=== PATIENT | male | born 1935 | race Caucasian/White ===

== ENCOUNTER → 2023-06-12 09:05 | Outpatient (REF) | payer MEDICARE, BC, SELFPAY | LOC: RCS 09:05 | PROVIDERS: ATTENDING PHYSICIAN Internal Medicine Cardiovascular Disease; FAMILY PHYSICIAN Family Medicine | DX: I77.810 Thoracic aortic ectasia (principal) | CPT/HCPCS: 93306 ==

== ENCOUNTER 2023-06-19 11:49 | Emergency (ER) | payer MEDICARE, BC, SELFPAY ==
[2023-06-19 11:51] VITALS: BP 120/79
[2023-06-19 12:35] LABS: ALT (SGPT) 12 U/L (0-50); AST (SGOT) 19 U/L (17-59); Albumin 3.8 g/dl (3.5-5.0); Alkaline Phosphatase 106 U/L (38-126); Blood Urea Nitrogen 28 mg/dl (9-20); Calcium 9.1 mg/dl (8.4-10.2); Carbon Dioxide 27 mmol/L (22-30); Chloride 102 mmol/L (98-107); Glucose 124 mg/dl (70-99); Potassium 4.3 mmol/L (3.5-5.1); Sodium 135 mmol/L (135-145); Total Bilirubin 1.4 mg/dl (0.2-1.3); Total Protein 6.8 g/dl (6.3-8.2); eGFR > 60.00
[2023-06-19 12:38] LABS: % Basophils 0.8 % (0-2); % Eosinophils 1.1 % (0-6); % Immature Granulocytes 0.4 % (0-0.5); % Lymphocytes 14.2 % (20.5-51.1); % Neutrophils 73.5 % (42.2-75.2); Absolute Basophils 0.1 10^3/uL (0-0.2); Absolute Eosinophils 0.1 10^3/uL (0-0.7); Absolute Lymphocytes 1.1 10^3/uL (1.2-3.4); Absolute Monocytes 0.8 10^3/uL (0.1-0.6); Absolute Neutrophils 5.8 10^3/uL (1.4-6.5); Hemoglobin 12.7 g/dL (13.0-18.0); Mean Corp Hgb Conc. 34.3 g/dL (33.0-37.0); Mean Corpuscular Hgb 29.9 pg (27.0-31.0); Mean Corpuscular Volume 87.1 fL (80.0-94.0); Nucleated Red Blood Cells % 0 % (-); Platelet Count 258 10^3/uL (130-400); Red Blood Cell Count 4.25 10^6/uL (4.70-6.10); Red Cell Dist. Width 14.2 % (11.5-14.5); White Blood Cell Count 7.9 10^3/uL (4.8-10.8)
[2023-06-19 12:45] LABS: Troponin I < 0.012 ng/ml
[2023-06-19 14:57] VITALS: BP 119/79
[2023-06-19 14:58] VITALS: BMI 33.6
[2023-06-19 15:00] VITALS: BP 123/77
--- NOTE | 2023-06-19 15:04 | EDRN ---
Dr. Naidu in room w/ pt and his son.
--- NOTE | 2023-06-19 15:12 | ED.GENMED ---
History of Present Illness
General
Chief Complaint: Breathing Problem
Source: patient and family
Time Seen by Provider: 06/19/23 14:59
Travel History
Have you had any contact with someone who has COVID-19?: No
Do you have any symptoms of coronavirus? Fever > 100 degrees, chills, cough, shortness of breath, sore throat, loss of taste or smell, muscle aches, or headache?: No
History of Present Illness
History of Present Illness:
This patient is an 88-year-old male presents emergency department accompanied by his son. His chief complaint is that of cough for the last 3 to 4 weeks. Is been getting progressively more persistent and is occasionally productive. He denies
hemoptysis. He saw his doctor on Thursday and was prescribed Levaquin. Since that time, like he is not improving but he does not necessarily feel worse. He says sometimes he will feel 'not too bad', and then a few minutes later will complain of
global weakness without focal findings. He denies fever, chills, sweats, dyspnea at rest. He does note mild dyspnea on exertion. He denies leg edema, PND, orthopnea. He denies urinary symptoms except slight hematuria which is not unusual for
him. He denies abdominal pain, back pain, headache, dizziness. He had chest discomfort complaints only on Thursday associated with a cough, no chest pain since that time. Patient states that he is not eating well. He does not have pain when
swallowing, but he says when he eats a lot he feels like the food starts to 'get caught', he chokes and then vomits. This most recently happened this morning while eating breakfast. He denies a foreign body sensation. Bowel movements are normal.
Past History
Past History
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
calculi, degenerative joint disease, arthritis, cataracts, right sided hearing impairment)
ED Past Surgical History: Orthopedic (Patient has a history of rotator cuff surgery on the right, left shoulder arthroscopy, and right knee arthroscopy) and Other (Patient has had surgery for right cataract and retinal detachment, stone the lip it
manipulation with stent placement left kidney stone extraction with stent in September of 2010, left testicular spermatocele ectomy,)
Social History
Tobacco: Non-smoker
Alcohol: None
Drug: None
Personal:
Living: with family
Employment: Retired
Family History
Family History: Hypertension
Phy Exam
Physical Exam
Physical Exam:
GENERAL: Alert , in no apparent distress, overall well-appearing, making jokes with me
EYE: pupils equal and reactive
NECK: Supple, no significant adenopathy.
ENT: o/p clr, mm slightly dry.
CARDIAC: Regular rate and rhythm with questionable occasional skipped beats.
LUNGS: Clear breath sounds bilaterally, no acute respiratory distress, no wheezes/rales/rhonchi, occasional nonproductive cough noted, speaks in full sentences easily
ABDOMEN: Soft, without focal tenderness, no r/g, no cvat
NEUROLOGICAL: Alert and oriented, no focal neuro deficits
SKIN: Warm and dry, skin intact.
MUSCULOSKELETAL: No edema, well perfused.
PSYCH: Normal and appropriate interaction.
Scores
Heart Failure Risk
Heart Failure Risk Score: Not Applicable
Course
Orders/Labs/Results
Orders:
Orders
06/19/23 11:58
Electrocardiogram (*1) Urgent
Reason for Study: Other
Other Reason for Exam: Respiratory Distress
EKG- Treatment ONCE
06/19/23 12:09
Complete Blood Count/With Diff Urgent
Comprehensive Metabolic Panel Urgent
NT-proBNP Urgent
Comment: ADD
Troponin I Urgent
Blood Culture Q30M
SKIP Source: Blood/Venous
Specimen Description:
Comment: FROM SEPARATE SITES
06/19/23 15:11
Add On- LAB Urgent
Tests Added?: bnp
CXR2 [CR Chest - 2 Views ] Stat
Comment:
Reason For Exam: sob, cough
06/19/23 15:14
ECG [Electrocardiogram (*1)] Stat
Reason for Study: Shortness of Breath
06/19/23 15:15
EKG- Treatment ONCE
06/19/23 15:34
COVID-19 Antigen Urgent
Source: Nasal Swab
Influenza A+B Rapid Molecular Stat
SKPI Source: Nasal Swab
Specimen Description:
Abnormal Lab Results
06/19/23
12:09
RBC 4.25 L 10^6/uL
(4.70-6.10)
Hgb 12.7 L g/dL
(13.0-18.0)
Hct 37.0 L %
(39.0-52.0)
MPV 11.0 H fL
(7.4-10.4)
Absolute Lymphs (auto) 1.1 L 10^3/uL
(1.2-3.4)
Absolute Monos (auto) 0.8 H 10^3/uL
(0.1-0.6)
Lymphocytes % 14.2 L %
(20.5-51.1)
Monocytes % 10.0 H %
(1.7-9.3)
BUN 28 H mg/dl
(9-20)
Glucose 124 H mg/dl
(70-99)
Total Bilirubin 1.4 H mg/dl
(0.2-1.3)
06/19/23 12:09
06/19/23 12:09
Vital Signs
Initial and Last Documented VS:
Initial Vital Signs
Temp Pulse Resp BP Pulse Ox
98.8 F 82 18 120/79 93
06/19/23 11:51 06/19/23 11:51 06/19/23 11:51 06/19/23 11:51 06/19/23 11:51
Last Documented Vital Signs
Temp Pulse Resp BP Pulse Ox
98.8 F 94 13 137/87 96
06/19/23 11:51 06/19/23 18:00 06/19/23 18:00 06/19/23 18:00 06/19/23 18:00
*Critical Care Note
Total Time (30-74mins, 75-104mins- exclusive of procedures): Not Applicable
Update Note
Update Note:
Patient presents to the Emergency Department with _cough
Number and Complexity of Problems Addressed at the Encounter
� Chronic conditions affecting care:
� Acute Exacerbation and/or Progression of Chronic Illness:
� Differential Diagnosis includes: But not limited to pneumonia, heart failure, pleural effusion, empyema, PTX, ACS, etc. etc.
Amount and/or Complexity of Data to be Reviewed and Analyzed
� I performed an independent evaluation of and my interpretation is:
EKG: Read by me, normal rate, initial portion of ECG appears to be irregular without clear P waves consistent with A-fib however last second of ECG consistent with normal sinus rhythm
CT:
Xrays: Read by me and radiology, NAD, no specific pneumonia noted.
Laboratory Studies: Read by me, mild anemia, however this would not be to the extent to explain patient's symptoms. COVID flu negative, BMP unremarkable, troponin unremarkable.
Other:
� Review of other/old records reveals: Discharge summary from January 2023 noted
� Clinical information was obtained by an independent historian: Son
� Prescriptions/Medications Considered but not given:
� Further testing considered but not performed:
Risk of Complications and/or Morbidity or Mortality of Patient Management
� Social determinants of health affecting care:
� Discussion with other providers (PCP, Hospitalists, Consultants, etc):
� Escalation of care including admission/observation vs risk of discharge considered: 5:46 PM repeat ECG does not demonstrate A-fib, consistent with normal sinus rhythm. Several reassessments here, patient remains comfortable
and states he feels 'great', pulse ox normal. We did a walking pulse ox which patient tolerated nicely without any observed hypoxia or symptoms. No chest pain. Extensive workup here, no specific acute etiology noted requiring intervention or
hospitalization at this time. And sent in for and reasons to return to the ER. He will continue his antibiotics and the full course.
ED Attending Note
-
Portions of this chart may have been created with voice recognition software.� Occasional wrong word or��sound alike� substitutions may have occurred due to the inherent limitations of voice recognition software.
Discharge Plan
Departure
Patient Disposition: Home (Routine Discharge)
Date of Disposition: 06/19/23
Time of Disposition: 17:48
Patient with high blood pressure during this ER visit?: No
Condition: Good
Discharge Problem:
Cough
Instructions: Cough in adults, Shortness of Breath (Dyspnea) (DC)
Prescriptions:
No Action
glimepiride 4 MG tablet
2 mg PO DAILY
metformin 1,000 MG tablet
1,000 mg PO BID
aspirin 81 mg Tablet,Delayed Release (Dr/Ec)
81 mg PO HS
amlodipine 10 mg tablet
10 mg PO DAILY
gabapentin 300 mg Capsule
300 mg PO BID
insulin glargine [Lantus Solostar U-100 Insulin] 100 unit/mL (3 mL) insulin pen
60 unit SC DAILY
acetaminophen [Tylenol Arthritis Pain] 650 mg Tablet Extended Release
1,300 mg PO TID
insulin aspart U-100 [Novolog FlexPen U-100 Insulin] 100 unit/mL (3 mL) Insulin Pen
16 - 20 unit SC AC
Rx Instructions:
Under 200= 16 units, Over 200= 20 units
hydrochlorothiazide 25 mg tablet
25 mg PO DAILY
levofloxacin 500 mg tablet
500 mg PO DAILY
potassium citrate 15 mEq tablet extended release
15 meq PO BID
Referrals:
Po Atkins MD [Family Provider] - Follow up in 2-3 days
Activity Restrictions/Additional Instructions:
IF YOU DEVELOP INCREASING OR PERSISTENT SHORTNESS OF BREATH, ANY CHEST PAIN, FEVER, VOMITING, ABDOMINAL PAIN, SWELLING, OR OTHER WORRISOME SIGNS, PLEASE RETURN TO THE ER IMMEDIATELY.
Interventions
Interventions:
*Risk Screen - Suicide Last Done: 06/19/23 11:51
*General Assessment Last Done: 06/19/23 11:51
*Neglect/Abuse Screening Last Done: 06/19/23 11:51
ED- Fall Risk Assessment Last Done: 06/19/23 14:58
*ED COVID-19 Vaccine History Last Done: 06/19/23 14:58
*Nursing Disposition Last Done: 06/19/23 18:15
ED- Cardiac Assessment Last Done: 06/19/23 14:58
ED- Pulmonary Assessment Last Done: 06/19/23 14:58
Discharge Date and Time
Discharge Date/Time: 06/19/23 18:15
[2023-06-19 16:00] VITALS: BP 127/71
[2023-06-19 16:07] LABS: NT-proBNP 208 pg/ml
[2023-06-19 16:16] LABS: COVID-19 Antigen Negative (Negative)
[2023-06-19 17:00] VITALS: BP 115/67
--- NOTE | 2023-06-19 17:39 | EDRN ---
Pt ambulated w/ walker in hallway from room # 39 to front of nurses/doctors area then turned around at beginning of ED CT hallway. Pt had no tachypnea, no increased work of breathing and POX remained 93-95% on RA. Dr. Naidu is aware.
[2023-06-19 18:00] VITALS: BP 137/87
== END 2023-06-19 18:15 | disposition home or self-care (01) ==
LOC: EMR 11:49
PROVIDERS: Emergency Medicine; EMERGENCY PHYSICIAN Emergency Medicine; FAMILY PHYSICIAN Family Medicine
DX: R05.9 Cough, unspecified (principal); R06.02 Shortness of breath; R06.09 Other forms of dyspnea; R31.9 Hematuria, unspecified; D64.9 Anemia, unspecified; Z11.52 Encounter for screening for COVID-19
CPT/HCPCS: 99285; 71046; 80053; 83880; 84484; 85025; 87040; 87502; 87811; 93005

== ENCOUNTER → 2023-06-22 08:12 | Day surgery (SDC) | payer MEDICARE, BC, SELFPAY ==
[2023-06-22 08:14] VITALS: BP 131/73
[2023-06-22 08:32] VITALS: BMI 32.3
--- NOTE | 2023-06-22 08:35 | ED.GENMED ---
History of Present Illness
General
Chief Complaint: Abdominal Symptoms
Source: patient and family
Exam Limitations: none
Time Seen by Provider: 06/22/23 08:23
Travel History
Have you had any contact with someone who has COVID-19?: No
Do you have any symptoms of coronavirus? Fever > 100 degrees, chills, cough, shortness of breath, sore throat, loss of taste or smell, muscle aches, or headache?: No
History of Present Illness
History of Present Illness:
See MDM
Past History
Past History
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
calculi, degenerative joint disease, arthritis, cataracts, right sided hearing impairment)
ED Past Surgical History: Orthopedic (Patient has a history of rotator cuff surgery on the right, left shoulder arthroscopy, and right knee arthroscopy) and Other (Patient has had surgery for right cataract and retinal detachment, stone the lip it
manipulation with stent placement left kidney stone extraction with stent in September of 2010, left testicular spermatocele ectomy,)
Social History
Tobacco: Non-smoker
Alcohol: None
Drug: None
Personal:
Living: with family
Employment: Retired
Family History
Family History: Hypertension
Phy Exam
Physical Exam
Physical Exam:
See MDM
Course
Orders/Labs/Results
Orders:
Orders
06/22/23 Breakfast
NPO
Allow oral meds: No
Allow clear liquids: No
06/22/23 08:41
Consult Gastroenterology [GASTROINTESTINAL CONSULT] Urgent
Consulting Provider: Teri Rdz
Was physician already notified: Yes
06/22/23 11:55
CBC/No Diff [Complete Blood Count/No Diff] Routine
CMP [Comprehensive Metabolic Panel] Routine
PT/INR [Prothrombin Time] Routine
06/22/23 12:46
Dextrose 50%-Water [Dextrose 50% Syringe] 12.5 grams IV NOW STA
06/22/23 13:00
Flush (0.9% Sodium Chloride) [Flush (Nss)] See Dose Instructions IV PER PROTOCOL
06/22/23 20:00
0.9% Sodium Chloride [Nss (Preservative Free)] 10 ml IV BID
Pantoprazole [Protonix IV] 40 mg IV BID
Abnormal Lab Results
06/22/23
11:55
RBC 4.36 L 10^6/uL
(4.70-6.10)
Hgb 12.9 L g/dL
(13.0-18.0)
MPV 10.9 H fL
(7.4-10.4)
BUN 30 H mg/dl
(9-20)
Glucose 57 L mg/dl
(70-99)
Total Bilirubin 1.5 H mg/dl
(0.2-1.3)
06/22/23 11:55
06/22/23 11:55
Vital Signs
Initial and Last Documented VS:
Initial Vital Signs
Temp Pulse Resp BP Pulse Ox
98.1 F 85 18 131/73 95
06/22/23 08:14 06/22/23 08:14 06/22/23 08:14 06/22/23 08:14 06/22/23 08:14
Last Documented Vital Signs
Temp Pulse Resp BP Pulse Ox
98.1 F 84 18 117/76 94
06/22/23 08:14 06/22/23 12:25 06/22/23 12:25 06/22/23 12:25 06/22/23 12:25
MDM/Problems Addressed
Differential Diagnosis Includes:
HPI and MDM Narrative:
88-year-old male presenting with complaint of trouble eating. Over the past several days, patient regurgitates his food soon after chewing it. Patient states it feels like he gets stuck. Family at bedside stating that he would chew his food even
when it is precut and ultimately ends up spitting it all up. He is able to drink water and soft foods such as applesauce.
Physical exam
General: Well appearing and non-toxic
HEENT: protecting airway. Poor dentition
Neck: supple
CV: No evidence of cyanosis
Resp: No accessory muscle use
Abd: Non-distended and nontender
Extremities: No deformities
Neuro: alert
Psych: Normal affect
Skin: Intact
Problems Addressed including Acute and Chronic Conditions affecting care:
1. Dysphagia
Acuity: acute
Prognosis: stable
Details: Given the difficulty with p.o. intake, will have GI evaluate at bedside
Updates
Patient evaluated by GI and they will take him to the GI suite for endoscopy
Differential Diagnosis (but not limited to): Dysphagia, esophageal stricture
Testing considered: Chest x-ray
Drug therapy (if applicable): OTC meds, please see d/c instruction regarding Rx drugs
Amount and/or Complexity of Data Reviewed
Clinical info obtained from: Patient
External data reviewed: N/A
Labs I independently reviewed (but not limited to): BUN mildly elevated
Radiology: N/A
Pulse Ox: not hypoxic
EKG independently reviewed: N/A
Registrar College [employer]: N/A
Critical Care: N/A
Risk of Complication:
Social Determinants of health: Good social support
Discussed with other providers: gastroenterology
Escalation of Care includes Admit/Obs: Given the dysphagia, patient will go to the GI suite for endoscopy
Occasional wrong word or 'sound a like' substitutions may have occurred due to the inherent limitations of voice recognition software. Read the chart carefully and recognize, using context, where substitutions have occurred.
*Critical Care Note
Total Time (30-74mins, 75-104mins- exclusive of procedures): Not Applicable
ED Attending Note
-
Portions of this chart may have been created with voice recognition software.� Occasional wrong word or��sound alike� substitutions may have occurred due to the inherent limitations of voice recognition software.
Discharge Plan
Departure
Patient Disposition: GI LAB
Date of Disposition: 06/22/23
Time of Disposition: 12:42
Presentation/result/management discussed w/ accepting MD/DO: Gastroenterology
Discharge Problem:
Dysphagia
Prescriptions:
No Action
glimepiride 4 MG tablet
2 mg PO DAILY
metformin 1,000 MG tablet
1,000 mg PO BID
aspirin 81 mg Tablet,Delayed Release (Dr/Ec)
81 mg PO HS
amlodipine 10 mg tablet
10 mg PO DAILY
gabapentin 300 mg Capsule
300 mg PO BID
insulin glargine [Lantus Solostar U-100 Insulin] 100 unit/mL (3 mL) insulin pen
60 unit SC DAILY
acetaminophen [Tylenol Arthritis Pain] 650 mg Tablet Extended Release
1,300 mg PO TID
insulin aspart U-100 [Novolog FlexPen U-100 Insulin] 100 unit/mL (3 mL) Insulin Pen
16 - 20 unit SC AC
Rx Instructions:
Under 200= 16 units, Over 200= 20 units
hydrochlorothiazide 25 mg tablet
25 mg PO DAILY
levofloxacin 500 mg tablet
500 mg PO DAILY
potassium citrate 15 mEq tablet extended release
15 meq PO BID
Referrals:
Po Atkins MD [Family Provider] -
Interventions
Interventions:
*Risk Screen - Suicide Last Done: 06/22/23 12:42
*General Assessment Last Done: 06/22/23 08:48
*Neglect/Abuse Screening Last Done: 06/22/23 12:42
ED- Fall Risk Assessment Last Done: 06/22/23 11:46
*ED COVID-19 Vaccine History Last Done: 06/22/23 08:18
*Nursing Disposition Last Done: 06/22/23 12:42
[facility]-Uue[facility]-Ognaelpoov Assessment Last Done: 06/22/23 12:48
--- NOTE | 2023-06-22 09:37 | CON.GI ---
Addendum entered and electronically signed by Teri Rdz MD 06/22/23 13:05:
I saw and examined the patient.
The SHEARING [employer] WORKER or PA's note was reviewed and I agree with the note.
Comment:
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 He has intermittent dysphagia to solids. Had a feeling of a food impaction but passed. No gerd, no prior egd
abd: soft, nontender
impression:
dysphagia
plan:
EGD with probable dilation, biopsy
PPI
Original Note:
Consultation
-
Date/Time Consultation Requested: 06/22/23
Date/Time Consultation Performed: 07/12/23 @ 09:45
Requesting Provider: Dr. Morgan
Performing Provider: COLLINS Rubio; Dr. Rdz
Reason for Consultation: possible food impaction, dysphagia
Medical History
Chief Complaint / HPI
Chief Complaint: difficulty swallowing
History of Present Illness:
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
diabetes type 2, sleep apnea, recurrent kidney stones, UTI/sepsis with ureteral stent placement 09/2022, arthritis, CAD, who presented to the emergency room with complaints of difficulty swallowing. We are being asked to evaluate for possible food
impaction. Upon review of records, he was seen in the emergency room on 06/18 with complaints of shortness of breath and cough. It appears he had been on recent antibiotics with Levaquin by his PCP for possible pneumonia. At that time he did have
some complaints of some dysphagia without odynophagia. His ER workup was essentially unrevealing. His viral swabs were negative for COVID and flu. Chest x-ray showed no signs of pneumonia. His EKG showed no signs of ischemia. He was noted to be
hypoxic. He was discharged home and advised to continue his antibiotics. Today he reports he has had difficulty swallowing for the past 3 weeks. His son is at the bedside as well to help with the history of present illness. The patient notes
that food has been getting stuck in his esophagus specifically dry meats. He denies any prior history of dysphagia prior to this onset. He notes that he did have an episode where the food got stuck for about 1 hour and his son notes he was
spitting up his saliva. He did eventually regurgitate the food and was able to swallow again. He denies any difficulty with pills or liquids. His son notes that when his father was younger he did require getting the Heimlich maneuver multiple
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 He denies any overt nausea or vomiting aside from the forced regurgitation he does admit to about 40 pounds of weight loss over the last few years but no acute onset of weight loss recently. He notes
he does have an appetite but is afraid to eat due to the food getting stuck. He denies any abdominal pain, chest pain, shortness of breath, fevers, or chills. He reports chronic diarrhea alternating with constipation for many years. He denies any
melena, medic easier, or hematemesis. He denies any recent steroid use. He denies any recent antibiotics prior to Levaquin which was prescribed by his PCP for treatment of pneumonia. He has 3 more days of his Levaquin course. He denies any
significant heartburn and does not take any medications for acid reflux. He does have a history of A-fib but is not on any blood thinners aside from 81 mg of aspirin. Prior EGD and colonoscopy approximately 10 years ago as noted below. No labs to
review.
Past Medical History
Past Medical History: Arrhythmias (atrial tachycardia), CAD, Cancer (Non-Hodgkin's lymphoma, colon mass with reported bone metastasis), GERD, HTN, Hypercholesterolemia, IDDM and Other (Sleep apnea, neuropathy, kidney stones, UTI, obesity)
Past Surgical History: Orthopedic (right rotator cuff surgery, left knee arthroscopy), Urological ( Left uteroscopy with laser lithotripsy 09/2022, ureteral stent placement) and Other (cataract surgery with intervention for retinal detachment)
Social History
Tobacco: Non-Smoker
Alcohol: None
Drug: None
Family History
Family History: Reviewed & Not Pertinent
Allergies / Home Medications
Allergy/AdvReac Type Severity Reaction Status Date / Time
No Known Allergies Allergy Verified 06/22/23 08:19
Medication Instructions Recorded
glimepiride 4 mg tablet 2 mg PO DAILY Diabetes 10/08/19
metformin 1,000 mg tablet 1,000 mg PO BID Diabetes 10/08/19
amlodipine 10 mg tablet 10 mg PO DAILY Blood pressure 04/25/22
aspirin 81 mg tablet,delayed 81 mg PO HS Blood clot 04/25/22
release prevention/tx
gabapentin 300 mg capsule 300 mg PO BID Neurological 04/25/22
Condition
insulin glargine 100 unit/mL (3 60 unit SC DAILY Diabetes 04/25/22
mL) subcutaneous pen (Lantus
Solostar U-100 Insulin)
acetaminophen 650 mg 1,300 mg PO TID Pain 01/30/23
tablet,extended release (Tylenol
Arthritis Pain)
insulin aspart U-100 100 unit/mL 16 - 20 unit SC AC Diabetes 01/30/23
(3 mL) subcutaneous pen (Novolog
FlexPen U-100 Insulin aspart)
hydrochlorothiazide 25 mg tablet 25 mg PO DAILY 06/19/23
levofloxacin 500 mg tablet 500 mg PO DAILY 06/19/23
potassium citrate 15 mEq (1,620 15 meq PO BID 06/19/23
mg) tablet,extended release
Review of Systems
-
History Source: Patient and Family
Constitutional: Reports Weight Loss (progressive over a few years)
EENT: Reports No Symptoms
Respiratory: Reports No Symptoms
Cardiac: Reports No Symptoms
Abdomen/GI: Reports Diarrhea, Constipated and Other (dysphagia, regurgitation)
: Reports Bleeding (intermittent bloody urine )
Musculoskeletal: Reports No Symptoms
Skin: Reports No Symptoms
Neurological: Reports No Symptoms
Vital Signs
Temp Pulse Resp BP Pulse Ox
98.1 F 85 18 131/73 95
06/22/23 08:14 06/22/23 08:14 06/22/23 08:14 06/22/23 08:14 06/22/23 08:14
Physical Exam
Exam
General: Well Developed, No Apparent Distress and Other (Pale, elderly appearing male in no significant distress)
HEENT: Normocephalic, Anicteric and Atraumatic
Respiratory: Clear
Cardiac: S1/S2 and Regular Rhythm (regularly irregular (with some skipped beats))
Breast: Deferred by me
GI: Soft, Non Tender, Non Distended, Normal Bowel Sounds and Other (obese abdomen)
Rectal: Deferred by Provider
Musculoskeletal: No Edema
Skin: Warm and Dry
Neuro: Awake, Alert and Oriented
Psych: Calm
Results
Diagnostic Image Results:
06/19/2023 CXR: IMPRESSION: 'Limited examination, especially of the left lower lung on the frontal view. No convincing evidence for consolidation/pneumonia. Cardiomegaly with no evidence for pulmonary edema or significant pleural effusion.'
Prior GI Procedures:
EGD: 02/15/2014 Dr. Camacho:�Z-line regular, 38 cm from the incisors. Biopsied. Hiatus hernia. Acute gastritis. Biopsied. Normal 3rd part of the duodenum. Biopsied. Path negative for dysplasia/metaplasia, celiac disease, H pylori.
Colonoscopy: 02/15/2014 Dr. Camacho: Diverticulosis in the sigmoid colon. Likely benign tumor in the sigmoid colon. Removal was not done. Biopsied. Injected. One 8 mm polyp in the distal transverse colon. Biopsied. Injected. One 4 mm polyp in the mid
transverse colon. Resected and retrieved.The examination was otherwise normal. Path showing malignant lymphoma of tumor. Adenomatous polyps.
Assessment / Plan
-
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
diabetes type 2, sleep apnea, recurrent kidney stones, hx UTI/sepsis 2022 with ureteral stent placement, arthritis, CAD, who presented to the emergency room with complaints of difficulty swallowing. We are being asked to evaluate for possible food
impaction. He notes 3 weeks of ongoing dysphagia with solid foods primarily with dry meats. Had episode suspicious for food impaction for 1 hour where he could not tolerate secretions per his son. Denies prior history of food impactions or
dysphagia. Currently tolerating secretions and resting in no acute distress.
Problem list:
-Dysphagia
-History of non-Hodgkin's lymphoma with colon mass and bone metastasis (no treatment per patient and son)
-Chronic normocytic anemia, hemoglobin appears stable
-Pneumonia on course of Levaquin as outpatient
Other prior medical history:
-Atrial tachycardia
-Recurrent kidney stones
-Insulin-dependent type 2 diabetes
-Osteoarthritis
-CAD
-Hypertension
-Hyperlipidemia
-hx dilated aortic root
Recommendations:
-Etiology of dysphagia possibly secondary to esophageal stricture versus Schatzki ring versus pill esophagitis versus esophageal candidiasis with recent antibiotics versus other. Cannot exclude mass/malignancy with history of non-Hodgkin's lymphoma
which was not treated.
---He currently is tolerating his secretions but it does sounds as though he did have a food impaction prior to admission.
-Discussed with the patient and his son at the bedside regarding proceeding with an EGD for further evaluation. Reviewed the risk and the benefits. They are agreeable to this today. Timing to be determined by Dr. Rdz but added on for today.
-Continue n.p.o.
-Will add twice daily PPI for now
-Further management pending above
-Of note I did have a discussion with the patient regarding if EGD findings were concerning for cancer. He does not wish to have any treatment in regards to this.
-Will follow
-
-
Thank you for consultation and allowing me to participate in the patient's care. Please call the [facility] paraprofessional GI physician during the after hours with any questions or concerns.
[2023-06-22 12:15] LABS: Hemoglobin 12.9 g/dL (13.0-18.0); Mean Corp Hgb Conc. 33.1 g/dL (33.0-37.0); Mean Corpuscular Hgb 29.6 pg (27.0-31.0); Mean Corpuscular Volume 89.4 fL (80.0-94.0); Mean Platelet Volume 10.9 fL (7.4-10.4); Platelet Count 289 10^3/uL (130-400); Red Blood Cell Count 4.36 10^6/uL (4.70-6.10); Red Cell Dist. Width 14.3 % (11.5-14.5); White Blood Cell Count 9.2 10^3/uL (4.8-10.8)
[2023-06-22 12:25] VITALS: BP 117/76
[2023-06-22 12:25] LABS: INR 1.16; PT 14.6 Sec (11.4-14.6)
[2023-06-22 12:29] LABS: Blood Urea Nitrogen 30 mg/dl (9-20); Estimated Creatinine Clearance 71 ml/min; Glucose 57 mg/dl (70-99)
[2023-06-22 12:30] LABS: ALT (SGPT) 13 U/L (0-50); AST (SGOT) 18 U/L (17-59); Albumin 3.9 g/dl (3.5-5.0); Alkaline Phosphatase 102 U/L (38-126); Calcium 9.1 mg/dl (8.4-10.2); Carbon Dioxide 28 mmol/L (22-30); Chloride 103 mmol/L (98-107); Potassium 3.8 mmol/L (3.5-5.1); Sodium 138 mmol/L (135-145); Total Bilirubin 1.5 mg/dl (0.2-1.3); Total Protein 6.8 g/dl (6.3-8.2); eGFR > 60.00
[2023-06-22 13:20] LABS: Glucose - Point of Care 116 mg/dl (70-99)
== END | disposition home or self-care (01) ==
LOC: SDS 08:12
PROVIDERS: Nurse Practitioner Family; ATTENDING PHYSICIAN Student in an Organized Health Care Education/Training Program; CONSULT PHYSICIAN Internal Medicine; FAMILY PHYSICIAN Family Medicine
DX: R13.10 Dysphagia, unspecified (principal); Q39.9 Congenital malformation of esophagus, unspecified; K22.2 Esophageal obstruction; K29.50 Unspecified chronic gastritis without bleeding
CPT/HCPCS: 43249; 88305; 80053; 82962; 85027; 85610; 88342; C1726

== ENCOUNTER → 2023-07-14 08:57 | Outpatient (REF) | payer MEDICARE, BC, SELFPAY | LOC: RAD 08:57 | PROVIDERS: ATTENDING PHYSICIAN Internal Medicine; FAMILY PHYSICIAN Family Medicine | DX: R13.19 Other dysphagia (principal) | CPT/HCPCS: 74221 ==

== ENCOUNTER → 2023-08-05 08:03 | Outpatient (REF) | payer MEDICARE, BC, SELFPAY | LOC: RAD 08:03 | PROVIDERS: ATTENDING PHYSICIAN Internal Medicine Cardiovascular Disease; FAMILY PHYSICIAN Family Medicine | DX: I71.21 Aneurysm of the ascending aorta, without rupture (principal) | CPT/HCPCS: 71275; Q9967 ==

== ENCOUNTER 2023-08-13 08:16 | Inpatient (IN) | payer MEDICARE, BC, SELFPAY ==
[2023-08-11 23:19] VITALS: BMI 33.2
[2023-08-11 23:21] VITALS: BP 114/66
[2023-08-12] VITALS (12 sets, daily range): BP systolic 92–137; BP diastolic 53–85; BMI 33.2; BMI 19.3
--- NOTE | 2023-08-12 00:07 | ED.GENMED ---
History of Present Illness
<PARVEZ Arce - Last Filed: 08/12/23 01:46>
General
Chief Complaint: Urinary Symptoms
Source: patient
Exam Limitations: none
Time Seen by Provider: 08/11/23 23:53
Nursing documentation reviewed up to this point in time: agreed with
Travel History
Have you had any contact with someone who has COVID-19?: No
Do you have any symptoms of coronavirus? Fever > 100 degrees, chills, cough, shortness of breath, sore throat, loss of taste or smell, muscle aches, or headache?: No
History of Present Illness
History of Present Illness:
This is a 88 year old male with an extensive PMHx presents to the ER for bladder incontinence x1 week. Son and grandson are by bedside providing additional history. Patient supports bladder incontinence about 5x daily for the past week. He admits
having urge shortly followed by incontinence. He has a history of multiple UTIs. He denies dysuria, odor, hematuria, back pain, or bowel incontinence. His son also reports patient has been more lethargic stating 'he slept all day.' Patient states
feeling more fatigued within the last week. He denies saddle paresthesia, abdominal pain, CP, SOB, or headache.
Past History
<PARVEZ Arce - Last Filed: 08/12/23 01:46>
Past History
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
calculi, degenerative joint disease, arthritis, cataracts, right sided hearing impairment)
ED Past Surgical History: Orthopedic (Patient has a history of rotator cuff surgery on the right, left shoulder arthroscopy, and right knee arthroscopy) and Other (Patient has had surgery for right cataract and retinal detachment, stone the lip it
manipulation with stent placement left kidney stone extraction with stent in September of 2010, left testicular spermatocele ectomy,)
Social History
Tobacco: Non-smoker
Alcohol: None
Drug: None
Personal:
Living: with family
Employment: Retired
Family History
Family History: Hypertension
Review of Systems
<Britta Cartwright [facility] - Last Filed: 08/12/23 01:46>
Review of Systems
Allergies reviewed?: Yes
All Other Systems: Not applicable
Constitutional: Reports fatigue
EENT: Reports no symptoms
Respiratory: Reports no symptoms
Cardiac: Reports no symptoms
ABD/GI: Reports no symptoms
: Reports incontinence and urgency
Musculoskeletal: Reports no symptoms
Skin: Reports no symptoms
Neurological: Reports no symptoms
Endocrine: Reports no symptoms
Hematologic/Lymphatic: Reports no symptoms
Psychiatric: Reports no symptoms
Phy Exam
<Britta Cartwright [facility] - Last Filed: 08/12/23 01:46>
General Physical Exam
General Presentation: well appearing and no apparent distress
General Skin: warm and dry
General Habitus: normal
General Mental: alert
General Hydration: appears well hydrated
ENT Exam
ENT Exam: EOMI, pharynx normal, neck supple and normocephalic
Eye Exam
Eye Exam: PERRL, cornea clear and conjunctiva normal
Cardiovascular Exam
Cardiovascular Exam: regular rate/rhythm, no edema, no murmur and normal peripheral pulses
Pulmonary Exam
Pulmonary Exam: lungs clear, no respiratory distress, no rales, no crackles, no rhonchi, no stridor, no wheezing and no cough
Gastrointestinal Exam
Gastrointestinal Exam: normal bowel sounds, non tender, soft, no organomegaly, no pulsatile mass and non distended
Neurological Exam
Neurological Exam: alert, oriented x3, no motor deficits and speech normal
Musculoskeletal Exam
Musculoskeletal Exam: full ROM and no edema
Skin Exam
Skin Exam: normal color, warm/dry, no rash and no petechia
Psychiatric Exam
Psychiatric Exam: normal mood/affect
Course
<PARVEZ Arce - Last Filed: 08/12/23 01:46>
Orders/Labs/Results
Orders:
Orders
08/12/23 00:04
ECG [Electrocardiogram (*1)] Urgent
Reason for Study: Palpitations
08/12/23 00:05
Urinalysis Urgent
08/12/23 01:10
Basic Metabolic Panel Urgent
Complete Blood Count/With Diff Urgent
Lactic Acid Q4H
Comment: CANCEL 2nd LACTIC ACID IF 1st LACTIC ACID IS LESS THAN 2
PTT Urgent
Procalcitonin Urgent
PCT Algorithmm Indication: Sepsis
Prothrombin Time Urgent
08/12/23 02:24
Lidocaine 2% [Lidocaine Uro-Jet 2%] 1 syringe .ROUTE .STK-MED ONE
Lidocaine 2% [Lidocaine Uro-Jet 2%] 1 syringe TOPICAL NOW STA
08/12/23 02:36
Naidu Placement- Treatment ONCE
Reason for insertion: Acute Kidney Injury
08/12/23 05:06
0.9% Sodium Chloride 500 ml [Nss] 500 ml IV BOLUS
08/12/23 05:33
CT Lumbar Spine W/o Iv Contras Urgent
Comment:
Reason For Exam: hx lumbar mets, urinary incontinence
Abnormal Lab Results
08/12/23
01:10
RBC 3.29 L 10^6/uL
(4.70-6.10)
Hgb 9.6 L g/dL
(13.0-18.0)
Hct 28.7 L %
(39.0-52.0)
RDW 17.2 H %
(11.5-14.5)
MPV 11.1 H fL
(7.4-10.4)
Abs Immat Gran (auto) 0.1 H 10^3/uL
(0-0.05)
Absolute Neuts (auto) 8.9 H 10^3/uL
(1.4-6.5)
Absolute Lymphs (auto) 0.8 L 10^3/uL
(1.2-3.4)
Immature Gran % 0.7 H %
(0-0.5)
Neutrophils % 84.8 H %
(42.2-75.2)
Lymphocytes % 8.0 L %
(20.5-51.1)
PT 16.6 H Sec
(11.4-14.6)
Sodium 131 L mmol/L
(135-145)
BUN 29 H mg/dl
(9-20)
Glucose 232 H mg/dl
(70-99)
Procalcitonin 0.28 H ng/ml
(0.0-0.25)
08/12/23 01:10
08/12/23 01:10
Vital Signs
Initial and Last Documented VS:
Initial Vital Signs
Temp Pulse Resp BP Pulse Ox
97.4 F 66 24 114/66 94
08/11/23 23:21 08/11/23 23:21 08/11/23 23:21 08/11/23 23:21 08/11/23 23:21
Last Documented Vital Signs
Temp Pulse Resp BP Pulse Ox
97.4 F 66 24 109/66 92
08/11/23 23:21 08/11/23 23:21 08/11/23 23:21 08/12/23 04:30 08/12/23 04:45
Clovislt;Jerson Cotton, DO - Last Filed: 08/12/23 05:36>
Orders/Labs/Results
Orders:
Orders
08/12/23 00:04
ECG [Electrocardiogram (*1)] Urgent
Reason for Study: Palpitations
08/12/23 00:05
Urinalysis Urgent
08/12/23 01:10
Basic Metabolic Panel Urgent
Complete Blood Count/With Diff Urgent
Lactic Acid Q4H
Comment: CANCEL 2nd LACTIC ACID IF 1st LACTIC ACID IS LESS THAN 2
PTT Urgent
Procalcitonin Urgent
PCT Algorithmm Indication: Sepsis
Prothrombin Time Urgent
08/12/23 02:24
Lidocaine 2% [Lidocaine Uro-Jet 2%] 1 syringe .ROUTE .ST-MED ONE
Lidocaine 2% [Lidocaine Uro-Jet 2%] 1 syringe TOPICAL NOW STA
08/12/23 02:36
Naidu Placement- Treatment ONCE
Reason for insertion: Acute Kidney Injury
08/12/23 05:06
0.9% Sodium Chloride 500 ml [Nss] 500 ml IV BOLUS
08/12/23 05:33
CT Lumbar Spine W/o Iv Contras Urgent
Comment:
Reason For Exam: hx lumbar mets, urinary incontinence
Abnormal Lab Results
08/12/23
01:10
RBC 3.29 L 10^6/uL
(4.70-6.10)
Hgb 9.6 L g/dL
(13.0-18.0)
Hct 28.7 L %
(39.0-52.0)
RDW 17.2 H %
(11.5-14.5)
MPV 11.1 H fL
(7.4-10.4)
Abs Immat Gran (auto) 0.1 H 10^3/uL
(0-0.05)
Absolute Neuts (auto) 8.9 H 10^3/uL
(1.4-6.5)
Absolute Lymphs (auto) 0.8 L 10^3/uL
(1.2-3.4)
Immature Gran % 0.7 H %
(0-0.5)
Neutrophils % 84.8 H %
(42.2-75.2)
Lymphocytes % 8.0 L %
(20.5-51.1)
PT 16.6 H Sec
(11.4-14.6)
Sodium 131 L mmol/L
(135-145)
BUN 29 H mg/dl
(9-20)
Glucose 232 H mg/dl
(70-99)
Procalcitonin 0.28 H ng/ml
(0.0-0.25)
08/12/23 01:10
08/12/23 01:10
Vital Signs
Initial and Last Documented VS:
Initial Vital Signs
Temp Pulse Resp BP Pulse Ox
97.4 F 66 24 114/66 94
08/11/23 23:21 08/11/23 23:21 08/11/23 23:21 08/11/23 23:21 08/11/23 23:21
Last Documented Vital Signs
Temp Pulse Resp BP Pulse Ox
97.4 F 66 24 109/66 92
08/11/23 23:21 08/11/23 23:21 08/11/23 23:21 08/12/23 04:30 08/12/23 04:45
<PARVEZ Arce - Last Filed: 08/12/23 01:46>
MDM/Problems Addressed
Differential Diagnosis Includes:
UTI, renal cancer/metastasis, nephrolithiasis
UTI considered with patient's history of recurrent UTIs. Will monitor UA for further work up. Renal cancer/metastasis considered due to patient's current cancer diagnoses. He states he has a follow up with oncology that was scheduled for this week.
Nephrolithiasis considered but less likely due to lack of pain.
Chronic conditions affecting care: Cancer
<PARVEZ Arce - Last Filed: 08/12/23 01:46>
*Critical Care Note
Total Time (30-74mins, 75-104mins- exclusive of procedures): Not Applicable
<Jerson Cotton DO - Last Filed: 08/12/23 05:36>
Update Note
Update Note:
08/12/2023 0210 AM: Patient urinated just prior to arrival. Still waiting on urine.
ED Attending Note
<PARVEZ Arce - Last Filed: 08/12/23 01:46>
-
Portions of this chart may have been created with voice recognition software.� Occasional wrong word or��sound alike� substitutions may have occurred due to the inherent limitations of voice recognition software.
<Jerson Cotton DO - Last Filed: 08/12/23 05:36>
ED Attending Note
Patient seen and examined by attending physician: Yes
I performed the substantive portion of visit, reviewed & personally made and approve the management plan that is documented in note by myself or SARBJIT.: Yes
ED Attending Note:
Pleasant 88-year-old male that presents with increased weakness and bladder incontinence for the last week. According to his son and grandson, patient has been having urinary incontinence. Patient states that he is unaware that he is urinating.
Patient denies any pain. Denies fever or chills. Denies nausea or vomiting. Son states that he has lost 25 pounds in the last few weeks. Patient has been eating slightly less then typical according to son. Patient does have 'some sort of
cancer'. Son thinks that his prostate or bladder
Vital signs are stable. Patient not hypoxic
Nursing note reviewed. I agree with nursing documentation up to this point in time.
Home Meds and allergies reviewed.
NUMBER AND COMPLEXITY OF PROBLEMS ADDRESSED AT THE ENCOUNTER
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
� Acute Exacerbation and/or Progression of Chronic Illness: Frequent UTIs
� Differential Diagnosis includes: UTI, metastasis of cancer
AMOUNT AND/OR COMPLEXITY OF DATA TO BE REVIEWED AND ANALYZED
I performed an independent evaluation of the following and my interpretation is:
EKG:
CT:
X-rays:
Ultrasound:
Laboratory Studies:
Other:
Review of other/old records:
Clinical information was obtained by an independent historian:
Prescriptions/Medications Considered but not given:
Further testing considered but not performed:
RISK OF COMPLICATIONS AND/OR MORBIDITY OR MORTALITY OF PATIENT MANAGEMENT
Social determinants of health affecting care: Good Social Support
Discussion with other providers:
Escalation of care including admission/observation vs risk of discharge considered:
CRITICAL CARE NOTE: Not applicable
Total Time (exclusive of procedures):
Update:
Discharge Plan
Departure
Patient Disposition: Admit
Date of Disposition: 08/12/23
Time of Disposition: 05:35
Admit to: Telemetry
Presentation/result/management discussed w/ accepting MD/DO: Hospitalist
Discharge Problem:
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
Prescriptions:
No Action
glimepiride 4 MG tablet
2 mg PO DAILY
metformin 1,000 MG tablet
1,000 mg PO BID
aspirin 81 mg Tablet,Delayed Release (Dr/Ec)
81 mg PO HS
amlodipine 10 mg tablet
10 mg PO DAILY
gabapentin 300 mg Capsule
300 mg PO BID
insulin glargine [Lantus Solostar U-100 Insulin] 100 unit/mL (3 mL) insulin pen
60 unit SC DAILY
acetaminophen [Tylenol Arthritis Pain] 650 mg Tablet Extended Release
1,300 mg PO TID
insulin aspart U-100 [Novolog FlexPen U-100 Insulin] 100 unit/mL (3 mL) Insulin Pen
16 - 20 unit SC AC
Rx Instructions:
Under 200= 16 units, Over 200= 20 units
hydrochlorothiazide 25 mg tablet
25 mg PO DAILY
levofloxacin 500 mg tablet
500 mg PO DAILY
potassium citrate 15 mEq tablet extended release
15 meq PO BID
Referrals:
Po Atkins MD [Family Provider] -
Interventions
Interventions:
*Risk Screen - Suicide Last Done: 08/11/23 23:21
*General Assessment Last Done: 08/12/23 01:25
*Neglect/Abuse Screening Last Done: 08/11/23 23:21
ED- Fall Risk Assessment Last Done: 08/12/23 01:25
*ED COVID-19 Vaccine History Last Done: 08/12/23 01:25
ED-Male Genitourinary Assessment Last Done: 08/12/23 01:25
Discharge Date and Time
Print Language: COLOMBIAN
[2023-08-12 01:33] LABS: % Basophils 0.3 % (0-2); % Eosinophils 0.3 % (0-6); % Immature Granulocytes 0.7 % (0-0.5); % Monocytes 5.9 % (1.7-9.3); % Neutrophils 84.8 % (42.2-75.2); Absolute Immature Granulocytes 0.1 10^3/uL (0-0.05); Absolute Lymphocytes 0.8 10^3/uL (1.2-3.4); Absolute Monocytes 0.6 10^3/uL (0.1-0.6); Absolute Neutrophils 8.9 10^3/uL (1.4-6.5); Hematocrit 28.7 % (39.0-52.0); Hemoglobin 9.6 g/dL (13.0-18.0); Mean Corp Hgb Conc. 33.4 g/dL (33.0-37.0); Mean Corpuscular Hgb 29.2 pg (27.0-31.0); Mean Corpuscular Volume 87.2 fL (80.0-94.0); Mean Platelet Volume 11.1 fL (7.4-10.4); Nucleated Red Blood Cells % 0 % (-); Platelet Count 301 10^3/uL (130-400); Red Blood Cell Count 3.29 10^6/uL (4.70-6.10); Red Cell Dist. Width 17.2 % (11.5-14.5); White Blood Cell Count 10.5 10^3/uL (4.8-10.8)
[2023-08-12 01:42] LABS: INR 1.36; PT 16.6 Sec (11.4-14.6)
[2023-08-12 01:43] LABS: APTT 30.5 Sec (23.4-35.0)
[2023-08-12 01:47] LABS: Blood Urea Nitrogen 29 mg/dl (9-20); Calcium 8.7 mg/dl (8.4-10.2); Carbon Dioxide 28 mmol/L (22-30); Chloride 100 mmol/L (98-107); Glucose 232 mg/dl (70-99); Lactic Acid 1.3 mmol/L (0.7-2.0); Potassium 4.3 mmol/L (3.5-5.1); Sodium 131 mmol/L (135-145); eGFR > 60.00
[2023-08-12 02:21] LABS: Procalcitonin 0.28 ng/ml (0.0-0.25)
[2023-08-12] MEDS: LIDOCAINE URO-JET 2% 1 SYRINGE TOPICAL (02:25)
--- NOTE | 2023-08-12 05:24 | HPS.HSE ---
Family Physician
-
Family Physician: Po Atkins
Chief Complaint
-
Weakness and Urine Incontinence x 5 days
History of Present Illness
88yo M with PMH HTN,�DM2,�SHIVANI on Cpap,�Non�Hodgkins Lymphoma (Dx by colonoscopy 01/2014), Mets to Spine,��Hx Obstructive Pyelonephritis,�GERD, Dysphagia�presents to ER for urine incontinence and generalized weakness. Pt is a poor historian, son who
lives with him is aiding in HPI. He reports urine incontinence ongoing for past 3-4 days without ever having such complaint in the past. He also reports chronic L>R UE weakness 2/2 arthritis and shoulder surgery but has had generalized lower
extremity weakness worsening for the last 1 month. +midline low back tenderness with radicular complaints. Denies saddle anesthesia or bowl incontinence. Additionally reports 25-30 lb wt loss. He reports never undergoing cancer treatment, and is
being observed by Dr. Saxena. Denies orthostatic complaints, dizziness/LH, CP, Palps, wheezing, cough, SOB, abd pain, n/v/d/c, dysuria, calf or leg pain.
He does also note a recent 08/04 CT Angiography study demonstrating extensive right axillary lymphadenopathy, renal masses, and a stable TAA 4cm.
ER course: Pt presents with BP 109/66, vital signs stable. BNU/Cr 29/0.8, BG 232, NA 131, Hgb 9.6 g/dL, WBC 10.8K. S/P 1L NS bolus in ER.
Onc: Hemanth
GI: Rubyyia Kajal
Urologist: Andrew (sp?)
Medical History
Past Medical History
Past Medical History: Reports Other (HTN,�DM2,�SHIVANI on Cpap,�Non�Hodgkins Lymphoma (Dx by colonoscopy 01/2014), Mets to Spine,��Hx Obstructive Pyelonephritis,�GERD, Dysphagia)
Past Surgical History: Reports Other (Rotator cuff surgery on the right, left shoulder arthroscopy, and right knee arthroscopy) and Other (Patient has had surgery for right cataract and retinal detachment, ureteral stent placement left kidney stone
extraction with stent in September of 2010)
Social History
Tobacco: Non-smoker
Alcohol: None
Drug: None
Personal:
Living: With Family
Employment: Retired
Family History
Family History: Hypertension and Other (Father had CVA)
Allergies / Home Medications
Allergies reflects when Allergies were last updated in [facility].
Home Medications with original date entered in [facility]
Allergy/Medication List:
Allergies
Allergy/AdvReac Type Severity Reaction Status Date / Time
No Known Allergies Allergy Verified 08/11/23 23:26
Home Medications
glimepiride 4 mg tablet 2 mg PO DAILY Diabetes 10/08/19
metformin 1,000 mg tablet 1,000 mg PO BID Diabetes 10/08/19
amlodipine 10 mg tablet 10 mg PO DAILY Blood pressure 04/25/22
aspirin 81 mg tablet,delayed release 81 mg PO HS Blood clot prevention/tx 04/25/22
gabapentin 300 mg capsule 300 mg PO BID Neurological Condition 04/25/22
insulin glargine 100 unit/mL (3 mL) subcutaneous pen (Lantus Solostar U-100 Insulin) 60 unit SC DAILY Diabetes 04/25/22
acetaminophen 650 mg tablet,extended release (Tylenol Arthritis Pain) 1,300 mg PO TID Pain 01/30/23
insulin aspart U-100 100 unit/mL (3 mL) subcutaneous pen (Novolog FlexPen U-100 Insulin aspart) 16 - 20 unit SC AC Diabetes 01/30/23
hydrochlorothiazide 25 mg tablet 25 mg PO DAILY 06/19/23
potassium citrate 15 mEq (1,620 mg) tablet,extended release 15 meq PO BID 06/19/23
escitalopram oxalate 5 mg tablet (Lexapro) 5 mg PO DAILY 08/12/23
Review of Systems
-
A 12 point ROS was completed and negative except as noted: Yes
Physical Exam
Vital Signs
Vital Signs
Temp Pulse Resp BP Pulse Ox
97.4 F 66 24 109/66 92
08/11/23 23:21 08/11/23 23:21 08/11/23 23:21 08/12/23 04:30 08/12/23 04:45
Physical Exam
General: Well Developed, Well Nourished and No Apparent Distress
HEENT: NormoCephalic, Moist mucous membranes and Atraumatic
Respiratory: Clear
Cardiac: S1/S2 and Regular Rhythm; No Murmur or Rub
GI: Soft, Non Tender, Non Distended and Normal Bowel Sounds; No Organomegaly
Rectal: Deferred by Provider
Genito-urinary: Naidu
Musculoskeletal: No Clubbing, No Cyanosis, No Edema and Other (No reproducible lumbar spine tenderness. Negative SLR b/l.)
Skin: No Rash
Neuro: Awake, Alert, Oriented, AO x 3, Cranial Nerves Intact, No Sensory Deficits and Other (LUE > RUE weakness (3/5 on left and 4/5 on right). MSK LE 5/5 throughout. )
Hematologic/Lymphatic: Lymphadenopathy
Psych: Calm
Laboratory Results
-
08/12/23 01:10
08/12/23 01:10
Laboratory Results
PT 16.6 Sec (11.4-14.6) H 08/12/23 01:10
INR 1.36 08/12/23 01:10
APTT 30.5 Sec (23.4-35.0) 08/12/23 01:10
Lactic Acid Cancelled 08/12/23 04:45
Data Reviewed
-
Diagnostic Radiology: Image Personally Visualized and interpreted
Medical Tests (Nuc Med, Echo, EKG etc): Image Personally Visualized and interpreted
Lab Data: Labs Reviewed by me
Old Records: Reviewed
Impression/Plan
-
Urinary Incontinence
Generalized Weakness
- Pt reports generalized lower extremity weakness, though 5/5 Strength on exam. Endorses chronic LUE>RUE weakness unchanged today
- He reports similar symptoms to his last UTI. UA still pending.
- Chemistry consistent with prerenal azotemia. Start IVF and trend BMP
- Naidu catheter was placed in ER for unclear reasons. Bladder scan after placement +25cc with no urine output as of yet.
- Obtain PT/OT consult
NHL
Metastatic Disease
Weight Loss
- Reports diagnosis in 01/2014 by colonoscopy. 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 Pt reports not being treated. Follows with oncology Dr. Saxena
- CTA 08/04 reviewed:
1.).There is extensive right axillary lymphadenopathy with greater than 10 clustered right axillary lymph nodes measuring up to 6.5 cm. This is highly suspicious for malignancy. Follow-up with PET scan and/or biopsy is recommended
2.).There are multiple right-sided renal masses including a 2 cm enhancing mass in the upper pole the right kidney which measures 57 Hounsfield units on noncontrast imaging and 86 Hounsfield units on postcontrast imaging. This mass may be benign or
malignant. Follow-up imaging with pre and postcontrast MRI including subtraction imaging may be useful for further evaluation
3). 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
- Consult h/o for further recommendations.
Hyponatremia
- Na 131. Suspect mild dehydration. S/P 1LNS bolus in ER. Continue NS @ 100cc/hr x 1L. Trend BMP
- Hold HCTZ. Consider holding gabapentin if worsening.
HTN
- BP 109/66 on admission. Suspect mild dehydration in setting of hyponatremia and pre-renal azotemia
- Hold HCTZ. Continue home amlodipine with hold parameters
DM2 / Neuropathy
- BG 232 on admission. Continue home insulin regimen. SSI/accuchecks. Continue home metformin/glimepride.
- Continue home gabapentin
SHIVANI
- Continue cpap qHS, does not know home settings
Anxiety/Depression - Recently started on lexapro 1 week ago. Cont 5 mg daily. Consider holding if hyponatremia worsens.
Dysphagia - S/P EGD 06/22/[address] Teri Rdz. Findings of tortuous esophagus, benign stricture, and tight LES. S/P balloon dilation with no further dysphagia. Continue diabetic diet.
Diet: Diabetic
DVT Ppx:Lovenox
Code Status: DNR/DNI
[2023-08-12] MEDS: NSS 500 IV (06:28)
--- NOTE | 2023-08-12 09:28 | CON.ONC ---
Addendum entered and electronically signed by Edmond Cam MD 08/12/23 10:04:
Anemia - HgB 9.6 Previous marrow involvement from NHL. Suspect that could be the cause (POD in marrow as well as systemic lymph node POD).
Addendum entered and electronically signed by Edmond Cam MD 08/12/23 09:51:
urology (not neurology) has also been consulted
Original Note:
Impression
Impression
Urinary incontinence, rule out spinal cord compression
Suspect disease progression/possible transformation of underlying grade 1 follicular lymphoma
Generalized weakness
Renal cysts/masses
Plan
Plan
Arrange for MRI of the thoracic/lumbar spine to rule out spinal cord compression as the etiology for his urinary incontinence. Somewhat atypical that he does not complain of more back pain.
Start empiric dexamethasone 6 mg IV TID pending MRI.
Patient will need lymph node biopsy. Will consult interventional radiology for right axillary lymph node biopsy. Check serum LDH.
Depending on MRI results, will consult radiation oncology if appropriate.
Renal cyst/renal masses could be potentially related to his lymphoma or could be benign cyst. MRI recommended but for now lets just get the MRI of the spine to make sure he does not have a spinal cord compression. Neurology has also been consulted.
Patient History
History of Present Illness
CC: Urinary incontinence
HPI: 88yo M with on observation alone with grade 1, stage IV follicular lymphoma diagnosed in 02/2014 with a relatively indolent course followed by Dr. Shivani Saxena. He presented with a colon mass and a positive bone marrow that revealed similar
small cleaved non-Hodgkin's lymphoma consistent with possibly follicular etiology. Patient was seen about a year ago and was relatively stable. He recently underwent follow-up CT angiogram to follow-up an ascending thoracic aortic aneurysm on
08/05/2023 and it showed extensive adenopathy consistent with recurrent lymphoma. A follow-up appointment with Dr. Saxena was actually scheduled for today to discuss further workup including a PET CT scan.
Patient was brought to the ER by his son for urinary incontinence x past 5 days and progressive generalized weakness. Patient denies any specific worsening or new back pain. He also reports chronic L>R UE weakness 2/2 arthritis and shoulder
surgery but has had generalized lower extremity weakness worsening for the last 1 month. Denies fecal incontinence. Additionally reports 25-30 lb wt loss.
Lumbar spine x-rays reveal multiple sites of what appears to be benign osseous disease with an area of canal stenosis at L4/L5.
Past-Medical/Surgical History
PMH: HTN, DM2, SHIVANI on Cpap, Non Hodgkins Lymphoma (Dx by colonoscopy 01/2014), Mets to Spine, Hx Obstructive Pyelonephritis, GERD, Dysphagia
PSH: Rotator cuff surgery on the right, left shoulder arthroscopy, and right knee arthroscopy) and Other (Patient has had surgery for right cataract and retinal detachment, ureteral stent placement left kidney stone extraction with stent in September
2010)
Social History
Tobacco: Non-smoker
Alcohol: None
Drug: None
Personal:
Living: With Son
Employment: Retired
Family History: Hypertension and Other (Father had CVA)
Patient Medication
�Medication �Instructions �Recorded �Confirmed �Last Taken �Type
glimepiride 4 mg tablet 2 mg PO DAILY Diabetes 10/08/19 08/12/23 08/11/23 History
metformin 1,000 mg tablet 1,000 mg PO BID Diabetes 10/08/19 08/12/23 08/11/23 History
amlodipine 10 mg tablet 10 mg PO DAILY Blood pressure 04/25/22 08/12/23 08/11/23 History
aspirin 81 mg tablet,delayed 81 mg PO HS Blood clot 04/25/22 08/12/23 08/11/23 History
release prevention/tx
gabapentin 300 mg capsule 300 mg PO BID Neurological 04/25/22 08/12/23 08/11/23 History
Condition
insulin glargine 100 unit/mL (3 60 unit SC DAILY Diabetes 04/25/22 08/12/23 08/11/23 History
mL) subcutaneous pen (Lantus
Solostar U-100 Insulin)
acetaminophen 650 mg 1,300 mg PO TID Pain 01/30/23 08/12/23 08/11/23 History
tablet,extended release (Tylenol
Arthritis Pain)
insulin aspart U-100 100 unit/mL 16 - 20 unit SC AC Diabetes 01/30/23 08/12/23 08/11/23 History
(3 mL) subcutaneous pen (Novolog
FlexPen U-100 Insulin aspart)
hydrochlorothiazide 25 mg tablet 25 mg PO DAILY 06/19/23 08/12/23 08/11/23 History
potassium citrate 15 mEq (1,620 15 meq PO BID 06/19/23 08/12/23 08/11/23 History
mg) tablet,extended release
escitalopram oxalate 5 mg tablet 5 mg PO DAILY 08/12/23 08/12/23 08/11/23 History
(Lexapro)
Active Medications
Generic Name Dose Route Start Last Admin
Trade Name Freq PRN Reason Stop Dose Admin
Acetaminophen 1,000 mg 08/12/23 09:00
Acetaminophen 500 Mg Tablet PO 09/09/23 08:59
TID JOSESITO
Albuterol/Ipratropium 3 ml 08/12/23 08:35
Ipratropium 0.5/Albuterol 3 Mg (3 Ml Ampul) INH
R Q4HPRN PRN
shortness of breath
Protocol
Amlodipine Besylate 10 mg 08/12/23 09:00
Amlodipine 10 Mg Tablet PO 09/09/23 08:59
DAILY JOSESITO
Bisacodyl 10 mg 08/12/23 08:35
Bisacodyl 10 Mg Rectal Suppository RECTAL 09/09/23 08:34
[id number] PRN
constipation
Ceftriaxone Sodium 1,000 mg 08/12/23 10:00
Ceftriaxone 1000 Mg / 10 Ml Vial IV
Q24H JOSESITO
Dextrose 12.5 grams 08/12/23 08:35
Dextrose 50% (0.5 Grams/Ml) 50 Ml Syringe IV 09/09/23 08:34
[id number] PRN
hypoglycemia
Protocol
Escitalopram Oxalate 5 mg 08/12/23 09:00
Escitalopram 5 Mg Tablet PO 09/09/23 08:59
DAILY JOSESITO
Gabapentin 300 mg 08/12/23 09:00
Gabapentin 300 Mg Capsule PO 09/09/23 08:59
BID JOSESITO
Glimepiride 2 mg 08/12/23 09:00
Glimepiride 2 Mg Tablet PO 09/09/23 08:59
DAILY JOSESITO
Glucagon 1 mg 08/12/23 08:35
Glucagon 1 Mg Vial IM 09/09/23 08:34
PRN PRN
hypoglycemia
Protocol
Guaifenesin 600 mg 08/12/23 08:35
Guaifenesin 600 Mg Extended Release Tablet PO 09/09/23 08:34
[id number] PRN
cough
Sodium Chloride 1,000 mls @ 100 mls/hr 08/12/23 08:35
Nss IV 08/12/23 18:34
.Q10H JOSESITO
Insulin Glargine 60 units/ 0.6 mls @ 0 mls/hr 08/12/23 10:00
Device SC 09/09/23 09:59
DAILY JOSESITO
As Directed
Insulin Aspart 16 - 20 units 08/12/23 08:35
Insulin Aspart (100 Units/Ml) 3 Ml Flexpen SC 09/09/23 08:34
AC JOSESITO
Insulin Aspart 0 units 08/12/23 08:35
Insulin Aspart Moderate Resistance 300 Units/3 Ml Pen.Injctr SC 09/09/23 08:34
AC JOSESITO
Protocol
Metformin HCl 1,000 mg 08/12/23 09:00
Metformin 1000 Mg Regular Release Tablet PO 09/09/23 08:59
BID@0800,1700 JOSESITO
Polyethylene Glycol 17 grams 08/12/23 08:35
Polyethylene Glycol Powder 17 Grams Packet PO 09/09/23 08:34
DAILYPRN PRN
constipation
Potassium Chloride 10 meq 08/12/23 09:00
Potassium Chloride 10 Meq Extended Release Tablet PO 09/09/23 08:59
BID JOSESITO
Senna/Docusate Sodium 1 tablet 08/12/23 08:35
Docusate W/Senna (Pinky-Colace) Tablet PO 09/09/23 08:34
BIDPRN PRN
constipation
Sterile Water 10 ml 08/12/23 10:00
Sterile Water For Injection 10 Ml Vial IV 09/09/23 09:59
Q24H JOSESITO
Review of Systems
-
History Source: Patient
Constitutional: Reports Fatigue; Denies Night Sweats
Respiratory: Reports No Symptoms
: Reports Incontinence
Hematologic/Lymphatic: Reports Swollen Glands
Physical Exam
-
General: Other (Elderly, frail, not cachectic generally weak)
HEENT: Negative Jaundice
Cardiology: S1 and S2
Pulmonary: Clear
GI: Soft
Extremities: No C/C/E
Hematologic / Lymphatic: Lymphadenopathy (6 cm right axillary malignant appearing lymphadenopathy)
Labs
Lab Results
WBC 10.5 10^3/uL (4.8-10.8) 08/12/23 01:10
RBC 3.29 10^6/uL (4.70-6.10) L 08/12/23 01:10
Hgb 9.6 g/dL (13.0-18.0) L 08/12/23 01:10
Hct 28.7 % (39.0-52.0) L 08/12/23 01:10
MCV 87.2 fL (80.0-94.0) 08/12/23 01:10
MCH 29.2 pg (27.0-31.0) 08/12/23 01:10
MCHC 33.4 g/dL (33.0-37.0) 08/12/23 01:10
RDW 17.2 % (11.5-14.5) H 08/12/23 01:10
Plt Count 301 10^3/uL (130-400) 08/12/23 01:10
MPV 11.1 fL (7.4-10.4) H 08/12/23 01:10
Abs Immat Gran (auto) 0.1 10^3/uL (0-0.05) H 08/12/23 01:10
Absolute Neuts (auto) 8.9 10^3/uL (1.4-6.5) H 08/12/23 01:10
Absolute Lymphs (auto) 0.8 10^3/uL (1.2-3.4) L 08/12/23 01:10
Absolute Monos (auto) 0.6 10^3/uL (0.1-0.6) 08/12/23 01:10
Absolute Eos (auto) 0.0 10^3/uL (0-0.7) 08/12/23 01:10
Absolute Basos (auto) 0.0 10^3/uL (0-0.2) 08/12/23 01:10
Immature Gran % 0.7 % (0-0.5) H 08/12/23 01:10
Neutrophils % 84.8 % (42.2-75.2) H 08/12/23 01:10
Lymphocytes % 8.0 % (20.5-51.1) L 08/12/23 01:10
Monocytes % 5.9 % (1.7-9.3) 08/12/23 01:10
Eosinophils % 0.3 % (0-6) 08/12/23 01:10
Basophils % 0.3 % (0-2) 08/12/23 01:10
Creatinine 0.8 mg/dL (0.7-1.3) 08/12/23 01:10
Vital Signs
Vital Signs
Temp Pulse Resp BP Pulse Ox
97.4 F 66 24 121/63 95
08/11/23 23:21 08/11/23 23:21 08/11/23 23:21 08/12/23 05:30 08/12/23 05:45
[2023-08-12 09:59] LABS: Urine Albumin 1+ (Neg - Trace); Urine Bilirubin Negative (Negative); Urine Character Slightly Cloudy (Clear); Urine Color Yellow; Urine Glucose 3+ (Negative); Urine Ketone Trace (Negative); Urine Leukocyte Trace (Negative); Urine Nitrite Negative (Negative); Urine Occult Blood 4+ (Negative); Urine Specific Gravity 1.015 (<1.030); Urine Urobilinogen 3+ (Neg - 1+)
--- NOTE | 2023-08-12 10:04 | W.PN.HOSP.TC ---
Today's Communication/Plan
-
IV fluids. IV antibiotics. Plan for MRI spine
Assessment / Plan
Assessment / Plan
Physical exam:
General: Acutely ill
HEENT: Normocephalic, Atraumatic and Moist Mucous Membranes
Respiratory: Clear to Auscultation; Negative Wheezes, Rales or Rhonchi
Cardiac: Regular Rhythm and S1/S2
GI: Soft, Nontender and Nondistended
Musculoskeletal: No Clubbing, No Cyanosis and No Edema
Neuro: Awake, Alert and Oriented, generalized weakness
Psych: Calm
A/P:
Urinary Incontinence rule out UTI versus spinal cord related
Generalized Weakness
- Pt reports generalized lower extremity weakness, though 5/5 Strength on exam. Endorses chronic LUE>RUE weakness unchanged today
- He reports similar symptoms to his last UTI.
- Chemistry consistent with prerenal azotemia. Start IVF and trend BMP
- Naidu catheter was placed in ER for unclear reasons. Bladder scan after placement +25cc with no urine output as of yet upon admission.
- Obtain PT/OT consult
-I agree not sure why Naidu catheter was placed. When I reevaluated this morning on 08/11 patient is voiding and bladder scan only 100 cc. Naidu catheter was became so the nurse took it out and was attempted to put another catheter in and in a
three-way catheter and then a coud� catheter. In any event, patient does not need a Naidu catheter at all at the moment. I did reach out to urology (he has a follow-up with urology as outpatient) and will consult them if any pertinent issues arise
but at this point hold off and reevaluate and bladder scan.
-Obtain blood cultures and urine cultures today
-Start empiric antibiotics, Rocephin 1 g IV daily
-Updated son at bedside today 08/11
NHL
Metastatic Disease
Weight Loss
- Reports diagnosis in 01/2014 by colonoscopy. 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 Pt reports not being treated. Follows with oncology Dr. Saxena
- CTA 08/04 reviewed:
1.).There is extensive right axillary lymphadenopathy with greater than 10 clustered right axillary lymph nodes measuring up to 6.5 cm. This is highly suspicious for malignancy. Follow-up with PET scan and/or biopsy is recommended
2.).There are multiple right-sided renal masses including a 2 cm enhancing mass in the upper pole the right kidney which measures 57 Hounsfield units on noncontrast imaging and 86 Hounsfield units on postcontrast imaging. This mass may be benign or
malignant. Follow-up imaging with pre and postcontrast MRI including subtraction imaging may be useful for further evaluation
3). 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
-Consulted hematology oncology today, 08/11
-Plan for MRI of the lumbar spine
Hyponatremia
- Na 131. Suspect mild dehydration. S/P 1LNS bolus in ER. Continue NS @ 100cc/hr x 1L. Trend BMP
- Hold HCTZ. Consider holding gabapentin if worsening.
HTN
- BP 109/66 on admission. Suspect mild dehydration in setting of hyponatremia and pre-renal azotemia
- Hold HCTZ. Continue home amlodipine with hold parameters
DM2 / Neuropathy
- BG 232 on admission. Continue home insulin regimen. SSI/accuchecks. Continue home metformin/glimepride.
- Continue home gabapentin
SHIVANI
- Continue cpap qHS, does not know home settings
Anxiety/Depression - Recently started on lexapro 1 week ago. Cont 5 mg daily. Consider holding if hyponatremia worsens.
Dysphagia - S/P EGD 06/22/[address] Teri Rdz. Findings of tortuous esophagus, benign stricture, and tight LES. S/P balloon dilation with no further dysphagia. Continue diabetic diet.
Diet: Diabetic
DVT Ppx:Lovenox
Code Status: DNR/DNI
Anticipated Discharge: > 48 hours
Subjective/Interval History
-
Date of Service: August 12, 2023
Patient with generalized weakness. Patient with urinary urgency, frequency, and incontinence. Afebrile
Objective Data
-
Labs:
Laboratory Results
08/12/23
01:10
WBC 10.5
Hgb 9.6 L
Hct 28.7 L
Plt Count 301
PT 16.6 H
INR 1.36
APTT 30.5
Sodium 131 L
Potassium 4.3
Chloride 100
Carbon Dioxide 28
BUN 29 H
Creatinine 0.8
Glucose 232 H
Calcium 8.7
Vital Signs:
Vital Signs
Temp Pulse Resp BP Pulse Ox
97.4 F 66 24 121/63 95
08/11/23 23:21 08/11/23 23:21 08/11/23 23:21 08/12/23 05:30 08/12/23 05:45
[2023-08-12 10:07] LABS: Urine Red Blood Cell 50-60 /HPF (0-2); Urine Squamous Cell 0-2 /LPF (Few)
[2023-08-12 10:08] LABS: Urine Bacteria Few (Negative)
[2023-08-12] MEDS: TYLENOL 1000 MG PO ×3 (11:15→21:42)
[2023-08-12] MEDS: NORVASC 10 MG PO (11:15)
[2023-08-12] MEDS: GLUCOPHAGE 1000 MG PO ×2 (11:16→17:51)
[2023-08-12] MEDS: KCL 10 MEQ PO ×2 (11:16→20:43)
[2023-08-12] MEDS: NEURONTIN 300 MG PO ×2 (11:17→20:43)
[2023-08-12] MEDS: DECADRON 6 MG IV ×2 (11:17→17:51)
[2023-08-12] MEDS: NOVOLOG FLEXPEN-MODERATE RESISTANCE SC (11:21)
[2023-08-12] MEDS: NOVOLOG FLEXPEN 20 UNITS SC ×3 (11:21→17:43)
[2023-08-12] MEDS: NSS 1000 IV (11:22)
[2023-08-12 11:23] LABS: Glucose - Point of Care 351 mg/dl (70-99)
[2023-08-12] MEDS: LANTUS 0.599999999999999978 UNITS SC (11:23)
[2023-08-12] MEDS: STERILE WATER FOR INJECTION 10 ML IV (11:35)
[2023-08-12] MEDS: ROCEPHIN 1000 MG IV (11:35)
[2023-08-12] MEDS: LEXAPRO 5 MG PO (11:35)
[2023-08-12] MEDS: AMARYL 2 MG PO (11:36)
--- NOTE | 2023-08-12 12:08 | CM ---
CM reviewed medical records. [facility] letter given to patient. Patient lives with son in a one story home. Patient has a history of VN with [facility]. Referral sent via [facility] for [facility]. CM is further pending PT recommendations. Patient denies
history of SNF. Patient uses a walker for ambulation services. Patient is active with his PCP DR. Atkins. Patient uses [facility] for pharmacy services in [place].
CM will continue to follow for needs pending PT revaluation.
PLAN: Home with VN
[2023-08-12 12:13] LABS: LDH 162 U/L (120-246)
[2023-08-12 12:32] LABS: Vitamin B12 517 pg/ml (239-931)
[2023-08-12] MEDS: NOVOLOG FLEXPEN-MODERATE RESISTANCE 7 UNITS SC (13:58)
[2023-08-12 14:02] LABS: Glucose - Point of Care 326 mg/dl (70-99)
--- NOTE | 2023-08-12 14:17 | PTOTSP ---
Dysphagia Evaluation
Oral and pharyngeal stages of swallowing suspected to be grossly WFL. Patient with history of esophageal dysphagia. Please follow reflux precautions.
Recommend:
1. Regular, Thin Liquids
2. Medications - as best tolerated (pt crushes large pills and mixes in applesauce)
3. Strategies: upright to 90 degrees, alternate solids and liquids, remain upright 30 minutes after PO intake
4. No further dysphagia therapy warranted at this time.
[2023-08-12 17:27] LABS: Glucose - Point of Care 378 mg/dl (70-99)
[2023-08-12] MEDS: NOVOLOG FLEXPEN-MODERATE RESISTANCE 9 UNITS SC (17:44)
[2023-08-12] MEDS: LOVENOX 40 MG SC (17:51)
[2023-08-12 21:05] LABS: Glucose - Point of Care 402 mg/dl (70-99)
[2023-08-12] MEDS: LOW STRENGTH ASPIRIN 81 MG PO (21:42)
[2023-08-12 22:12] LABS: Glucose 300 mg/dl (70-99)
[2023-08-12] MEDS: NOVOLOG FLEXPEN 7 UNITS SC (22:37)
[2023-08-13] VITALS (7 sets, daily range): BP systolic 101–127; BP diastolic 59–73; PULSE 72–91; O2SAT 95; BMI 19.4
[2023-08-13 00:30] LABS: Glucose - Point of Care 278 mg/dl (70-99)
[2023-08-13] MEDS: DECADRON 6 MG IV (01:55)
[2023-08-13 03:09] LABS: Glucose - Point of Care 297 mg/dl (70-99)
[2023-08-13 05:43] LABS: % Basophils 0.1 % (0-2); % Immature Granulocytes 0.6 % (0-0.5); % Lymphocytes 2.5 % (20.5-51.1); % Monocytes 3.5 % (1.7-9.3); % Neutrophils 93.3 % (42.2-75.2); Absolute Immature Granulocytes 0.1 10^3/uL (0-0.05); Absolute Lymphocytes 0.4 10^3/uL (1.2-3.4); Absolute Monocytes 0.6 10^3/uL (0.1-0.6); Absolute Neutrophils 14.8 10^3/uL (1.4-6.5); Hematocrit 29.2 % (39.0-52.0); Hemoglobin 9.4 g/dL (13.0-18.0); Mean Corp Hgb Conc. 32.2 g/dL (33.0-37.0); Mean Corpuscular Hgb 28.8 pg (27.0-31.0); Mean Corpuscular Volume 89.6 fL (80.0-94.0); Mean Platelet Volume 11.3 fL (7.4-10.4); Nucleated Red Blood Cells % 0 % (-); Platelet Count 292 10^3/uL (130-400); Red Blood Cell Count 3.26 10^6/uL (4.70-6.10); Red Cell Dist. Width 16.9 % (11.5-14.5); White Blood Cell Count 15.9 10^3/uL (4.8-10.8)
[2023-08-13 06:09] LABS: Blood Urea Nitrogen 33 mg/dl (9-20); Carbon Dioxide 25 mmol/L (22-30); Chloride 99 mmol/L (98-107); Estimated Creatinine Clearance 73 ml/min; Glucose 311 mg/dl (70-99); Potassium 4.7 mmol/L (3.5-5.1); Sodium 134 mmol/L (135-145); eGFR > 60.00
[2023-08-13 06:37] LABS: TSH Reflex To Free T4 0.44 uIU/ml (0.47-4.68)
[2023-08-13 07:07] LABS: Free T4 1.18 ng/dl (0.78-2.19)
[2023-08-13 07:13] LABS: Glucose - Point of Care 384 mg/dl (70-99)
--- NOTE | 2023-08-13 08:13 | W.PN.HOSP.TC ---
Today's Communication/Plan
-
Continue IV antibiotics. Biopsy pending.
Assessment / Plan
Assessment / Plan
Physical exam:
General: Acutely ill
HEENT: Normocephalic, Atraumatic and Moist Mucous Membranes
Respiratory: Clear to Auscultation; Negative Wheezes, Rales or Rhonchi
Cardiac: Regular Rhythm and S1/S2
GI: Soft, Nontender and Nondistended
Musculoskeletal: No Clubbing, No Cyanosis and No Edema
Neuro: Awake, Alert and Oriented, generalized weakness
Psych: Calm
Thoracic MRI:
No intrinsic cord signal alteration or abnormal enhancement.
Mild degenerative changes. Mild annular bulging from T7-8 through T11-12. Associated mild central canal narrowing. However, no cord compression.
Abnormal STIR signal intensity and enhancement of the left T7 transverse process, raising possibility of osseous metastatic disease. No other evidence to suggest vertebral metastatic disease. Multiple small vertebral lesions with signal
characteristics most consistent with hemangiomas.
Lumbar MRI:
1. Naidu catheter inferiorly positioned within the prostatic urethra and not extending into the urinary bladder. Severe enlargement of the prostate gland. Moderate to severe diffuse thickening and trabeculation of the wall of the urinary bladder
suggesting chronic urinary bladder outlet obstruction.
2. Chronic fracture of the anterior superior endplate of L2 with moderate loss of vertebral body height which appears unchanged. No CT evidence for acute fracture in the lumbar spine.
3. Mild to moderate right convex curvature of the midlumbar spine. SEVERE DISCOGENIC DEGENERATIVE DISEASE along the left side of L3/L4 and moderate discogenic degenerative disease at L1/L2 and L2/L3.
4. Moderate-sized central disc herniation at L4/L5 causing MODERATE CENTRAL CANAL STENOSIS.
5. Mild central canal stenosis at L2/L3 and L3/L4.
6. Severe right neural foraminal narrowing at L5/S1.
7. Bilateral high attenuation renal masses (probably hemorrhagic renal cysts).
8. Mild stercoral colitis in the rectum.
9. 4.4 cm calcified right-sided pelvic mass (probably treated lymphoma).
A/P:
Urinary Incontinence rule out UTI versus spinal cord related
Generalized Weakness
- Pt reports generalized lower extremity weakness, though 5/5 Strength on exam. Endorses chronic LUE>RUE weakness unchanged today
- He reports similar symptoms to his last UTI.
- Chemistry consistent with prerenal azotemia. Start IVF and trend BMP
- Naidu catheter was placed in ER for unclear reasons. Bladder scan after placement +25cc with no urine output as of yet upon admission.
- Obtain PT/OT consult
-I agree not sure why Naidu catheter was placed. When I reevaluated this morning on 08/11 patient is voiding and bladder scan only 100 cc. Naidu catheter was became so the nurse took it out and was attempted to put another catheter in and in a
three-way catheter and then a coud� catheter. In any event, patient does not need a Naidu catheter at all at the moment. I did reach out to urology (he has a follow-up with urology as outpatient) and will consult them if any pertinent issues arise
but at this point hold off and reevaluate and bladder scan. Patient currently has a condom catheter.
-Obtained blood cultures and urine cultures--> pending
-Cont empiric antibiotics, Rocephin 1 g IV daily
-Updated son at bedside today 08/12
Leukocytosis
Steroids related and ?infectious
WBC 15.9 today
NHL
Metastatic Disease
Weight Loss
- Reports diagnosis in 01/2014 by colonoscopy. 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 Pt reports not being treated. Follows with oncology Dr. Saxena
- CTA 08/04 reviewed:
1.).There is extensive right axillary lymphadenopathy with greater than 10 clustered right axillary lymph nodes measuring up to 6.5 cm. This is highly suspicious for malignancy. Follow-up with PET scan and/or biopsy is recommended
2.).There are multiple right-sided renal masses including a 2 cm enhancing mass in the upper pole the right kidney which measures 57 Hounsfield units on noncontrast imaging and 86 Hounsfield units on postcontrast imaging. This mass may be benign or
malignant. Follow-up imaging with pre and postcontrast MRI including subtraction imaging may be useful for further evaluation
3). 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
-Consulted hematology oncology on 08/11
-MRI of the thoracic and lumbar spine reviewed results. Started on IV steroids but I will discontinue
-Oncology consulted IR for lymph node biopsy yesterday. Biopsy results pending
Hyponatremia
- Na 131. Suspect mild dehydration. S/P 1LNS bolus in ER. Continue NS @ 100cc/hr x 1L. Trend BMP
- Hold HCTZ. Consider holding gabapentin if worsening.
HTN
- BP 109/66 on admission. Suspect mild dehydration in setting of hyponatremia and pre-renal azotemia
- Hold HCTZ. Continue home amlodipine with hold parameters
DM2 / Neuropathy
-Worsening hyperglycemia due to steroids today. Discontinue steroids. Would expect sugars will improve over the next 24-48 hours.
-BG 232 on admission. Continue home insulin regimen. SSI/accuchecks. Continue home metformin/glimepride.
- Continue home gabapentin
SHIVANI
- Continue cpap qHS, does not know home settings
Anxiety/Depression - Recently started on lexapro 1 week ago. Cont 5 mg daily. Consider holding if hyponatremia worsens.
Dysphagia - S/P EGD 06/22/[address] Teri Rdz. Findings of tortuous esophagus, benign stricture, and tight LES. S/P balloon dilation with no further dysphagia. Continue diabetic diet.
Diet: Diabetic
DVT Ppx:Lovenox
Code Status: DNR/DNI
Anticipated Discharge: 24 - 48 hours
Subjective/Interval History
-
Date of Service: August 13, 2023
Patient has any chest pain or shortness of breath. Afebrile
Objective Data
-
Labs:
Laboratory Results
08/12/23 08/13/23
21:45 05:23
WBC 15.9 H
Hgb 9.4 L
Hct 29.2 L
Plt Count 292
Sodium 134 L
Potassium 4.7
Chloride 99
Carbon Dioxide 25
BUN 33 H
Creatinine 0.7
Glucose 300 H 311 H
Calcium 9.0
Vital Signs:
Vital Signs
Temp Pulse Resp BP Pulse Ox
97.5 F 77 18 120/64 97
08/13/23 08:03 08/13/23 08:03 08/13/23 08:03 08/13/23 08:03 08/13/23 08:03
I&O
08/12/23 08/13/23 08/14/23
06:59 06:59 06:59
Output Total 800 / 800
Balance -800 / -800
[2023-08-13] MEDS: TYLENOL 1000 MG PO ×3 (09:41→21:10)
[2023-08-13] MEDS: NEURONTIN 300 MG PO ×2 (09:41→20:42)
[2023-08-13] MEDS: AMARYL 2 MG PO (09:42)
[2023-08-13] MEDS: GLUCOPHAGE 1000 MG PO ×2 (09:42→17:00)
[2023-08-13] MEDS: NORVASC 10 MG PO (09:42)
[2023-08-13] MEDS: LEXAPRO 5 MG PO (09:42)
[2023-08-13] MEDS: KCL 10 MEQ PO ×2 (09:42→20:42)
[2023-08-13] MEDS: NOVOLOG FLEXPEN-MODERATE RESISTANCE 9 UNITS SC (09:43)
--- NOTE | 2023-08-13 09:43 | W.PN.ONC ---
Today's Communication / Plan
-
Await pathology from ultrasound-guided biopsy of the axilla
Monitor CBC 3-1/2 g drop in hemoglobin since 06/22/2023
Marrow signal slightly decreased suggestive of treated NHL
Imaging of the thoracic and lumbar spine appear to be benign without evidence of cord compression consider discontinuing dexamethasone given elevated glucose
Await neurology input
Impression
Impression
Urinary incontinence, rule out spinal cord compression
Suspect disease progression/possible transformation of underlying grade 1 follicular lymphoma
Generalized weakness
Renal cysts/masses
Subjective/Objective
Subjective/Objective
No new complaints.
Vital Signs:
Vital Signs
Temp Pulse Resp BP Pulse Ox
97.5 F 77 18 120/64 97
08/13/23 08:03 08/13/23 08:03 08/13/23 08:03 08/13/23 08:03 08/13/23 08:03
PE:
HEENT without scleral icterus
Heart Regular
Lungs clear without significant decreased in the base
Extremities without pretibial edema
Lab Results:
Laboratory Data
WBC 15.9 10^3/uL (4.8-10.8) H 08/13/23 05:23
Hgb 9.4 g/dL (13.0-18.0) L 08/13/23 05:23
Plt Count 292 10^3/uL (130-400) 08/13/23 05:23
PT 16.6 Sec (11.4-14.6) H 08/12/23 01:10
INR 1.36 08/12/23 01:10
APTT 30.5 Sec (23.4-35.0) 08/12/23 01:10
eGFR > 60.00 08/13/23 05:23
[2023-08-13] MEDS: LANTUS 0.599999999999999978 UNITS SC (09:45)
[2023-08-13] MEDS: NOVOLOG FLEXPEN 20 UNITS SC ×3 (09:47→17:01)
[2023-08-13 11:44] LABS: Glucose - Point of Care 514 mg/dl (70-99)
[2023-08-13] MEDS: ROCEPHIN 1000 MG IV (11:53)
[2023-08-13] MEDS: STERILE WATER FOR INJECTION 10 ML IV (11:53)
[2023-08-13 12:42] LABS: Glucose 494 mg/dl (70-99)
[2023-08-13] MEDS: DECADRON IV (13:17)
[2023-08-13 14:27] LABS: Glucose - Point of Care 522 mg/dl (70-99)
[2023-08-13 15:51] LABS: Glucose 480 mg/dl (70-99)
[2023-08-13] MEDS: NOVOLOG FLEXPEN-MODERATE RESISTANCE SC ×2 (16:16→20:56)
[2023-08-13] MEDS: LOVENOX 40 MG SC (18:35)
[2023-08-13 19:06] LABS: Glucose - Point of Care 384 mg/dl (70-99)
[2023-08-13] MEDS: NOVOLOG FLEXPEN 10 UNITS SC (19:43)
[2023-08-13] MEDS: NOVOLOG FLEXPEN SC (20:56)
[2023-08-13] MEDS: LOW STRENGTH ASPIRIN 81 MG PO (21:10)
[2023-08-13 22:00] LABS: Glucose - Point of Care 295 mg/dl (70-99)
[2023-08-14 04:13] LABS: Glucose - Point of Care 179 mg/dl (70-99)
[2023-08-14 05:33] LABS: % Basophils 0.1 % (0-2); % Eosinophils 0.2 % (0-6); % Lymphocytes 5.2 % (20.5-51.1); % Monocytes 5.3 % (1.7-9.3); % Neutrophils 88.2 % (42.2-75.2); Absolute Immature Granulocytes 0.1 10^3/uL (0-0.05); Absolute Lymphocytes 0.7 10^3/uL (1.2-3.4); Absolute Monocytes 0.7 10^3/uL (0.1-0.6); Absolute Neutrophils 11.7 10^3/uL (1.4-6.5); Hemoglobin 9.1 g/dL (13.0-18.0); Mean Corp Hgb Conc. 32.5 g/dL (33.0-37.0); Mean Corpuscular Hgb 29.2 pg (27.0-31.0); Mean Corpuscular Volume 89.7 fL (80.0-94.0); Mean Platelet Volume 11.4 fL (7.4-10.4); Nucleated Red Blood Cells % 0 % (-); Platelet Count 279 10^3/uL (130-400); Red Blood Cell Count 3.12 10^6/uL (4.70-6.10); White Blood Cell Count 13.3 10^3/uL (4.8-10.8)
[2023-08-14 06:07] LABS: Blood Urea Nitrogen 40 mg/dl (9-20); Calcium 8.9 mg/dl (8.4-10.2); Carbon Dioxide 30 mmol/L (22-30); Chloride 99 mmol/L (98-107); Estimated Creatinine Clearance 64 ml/min; Glucose 148 mg/dl (70-99); Potassium 4.5 mmol/L (3.5-5.1); Sodium 133 mmol/L (135-145); eGFR > 60.00
--- NOTE | 2023-08-14 07:40 | W.PN.HOSP.TC ---
Today's Communication/Plan
-
Continue current management. Discharge planning in progress.
Assessment / Plan
Assessment / Plan
Physical exam:
General: No acute distress
HEENT: Normocephalic, Atraumatic and Moist Mucous Membranes
Respiratory: Clear to Auscultation; Negative Wheezes, Rales or Rhonchi
Cardiac: Regular Rhythm and S1/S2
GI: Soft, Nontender and Nondistended
Musculoskeletal: No Clubbing, No Cyanosis and No Edema
Neuro: Awake, Alert and Oriented, generalized weakness
Psych: Calm
Thoracic MRI:
No intrinsic cord signal alteration or abnormal enhancement.
Mild degenerative changes. Mild annular bulging from T7-8 through T11-12. Associated mild central canal narrowing. However, no cord compression.
Abnormal STIR signal intensity and enhancement of the left T7 transverse process, raising possibility of osseous metastatic disease. No other evidence to suggest vertebral metastatic disease. Multiple small vertebral lesions with signal
characteristics most consistent with hemangiomas.
Lumbar MRI:
1. Naidu catheter inferiorly positioned within the prostatic urethra and not extending into the urinary bladder. Severe enlargement of the prostate gland. Moderate to severe diffuse thickening and trabeculation of the wall of the urinary bladder
suggesting chronic urinary bladder outlet obstruction.
2. Chronic fracture of the anterior superior endplate of L2 with moderate loss of vertebral body height which appears unchanged. No CT evidence for acute fracture in the lumbar spine.
3. Mild to moderate right convex curvature of the midlumbar spine. SEVERE DISCOGENIC DEGENERATIVE DISEASE along the left side of L3/L4 and moderate discogenic degenerative disease at L1/L2 and L2/L3.
4. Moderate-sized central disc herniation at L4/L5 causing MODERATE CENTRAL CANAL STENOSIS.
5. Mild central canal stenosis at L2/L3 and L3/L4.
6. Severe right neural foraminal narrowing at L5/S1.
7. Bilateral high attenuation renal masses (probably hemorrhagic renal cysts).
8. Mild stercoral colitis in the rectum.
9. 4.4 cm calcified right-sided pelvic mass (probably treated lymphoma).
A/P:
Urinary Incontinence rule out UTI versus spinal cord related
Generalized Weakness
- Pt reports generalized lower extremity weakness, though 5/5 Strength on exam. Endorses chronic LUE>RUE weakness unchanged today
- He reports similar symptoms to his last UTI.
- Chemistry consistent with prerenal azotemia. Start IVF and trend BMP
- Naidu catheter was placed in ER for unclear reasons. Bladder scan after placement +25cc with no urine output as of yet upon admission.
- Obtain PT/OT consult
-I agree not sure why Naidu catheter was placed. When I reevaluated this morning on 08/11 patient is voiding and bladder scan only 100 cc. Naidu catheter was became so the nurse took it out and was attempted to put another catheter in and in a
three-way catheter and then a coud� catheter. In any event, patient does not need a Naidu catheter at all at the moment. I did reach out to urology (he has a follow-up with urology as outpatient) and will consult them if any pertinent issues arise
but at this point hold off and reevaluate and bladder scan. Patient currently has a condom catheter.
-Obtained blood cultures and urine cultures--> no growth
-Cont empiric antibiotics, Rocephin 1 g IV daily and change to oral antibiotic for short course.
-Updated son today on 08/13
Leukocytosis
Steroids related and ?infectious
WBC 13.3 today
NHL
Metastatic Disease
Weight Loss
- Reports diagnosis in 01/2014 by colonoscopy. 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 Pt reports not being treated. Follows with oncology Dr. Saxena
- CTA 08/04 reviewed:
1.).There is extensive right axillary lymphadenopathy with greater than 10 clustered right axillary lymph nodes measuring up to 6.5 cm. This is highly suspicious for malignancy. Follow-up with PET scan and/or biopsy is recommended
2.).There are multiple right-sided renal masses including a 2 cm enhancing mass in the upper pole the right kidney which measures 57 Hounsfield units on noncontrast imaging and 86 Hounsfield units on postcontrast imaging. This mass may be benign or
malignant. Follow-up imaging with pre and postcontrast MRI including subtraction imaging may be useful for further evaluation
3). 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
-Consulted hematology oncology on 08/11
-MRI of the thoracic and lumbar spine reviewed results. Started on IV steroids but I will discontinue
-Oncology consulted IR for lymph node biopsy. Biopsy results pending and can follow-up as outpatient.
Hyponatremia
- Na 131. Suspect mild dehydration. S/P 1LNS bolus in ER. Continue NS @ 100cc/hr x 1L. Trend BMP. Latest sodium 133
- Hold HCTZ. Consider holding gabapentin if worsening.
HTN
-Blood pressure stable.
-BP 109/66 on admission. Suspect mild dehydration in setting of hyponatremia and pre-renal azotemia
- Hold HCTZ. Continue home amlodipine with hold parameters
DM2 / Neuropathy
-Worsening hyperglycemia due to steroids yesterday but now the steroids are off blood sugars is better. Blood sugar today 148.
- Discontinue steroids. Would expect sugars will improve over the next 24-48 hours.
-BG 232 on admission. Continue home insulin regimen. SSI/accuchecks. Continue home metformin/glimepride.
- Continue home gabapentin
SHIVANI
- Continue cpap qHS, does not know home settings
Anxiety/Depression - Recently started on lexapro 1 week ago. Cont 5 mg daily. Consider holding if hyponatremia worsens.
Dysphagia - S/P EGD 06/22/[address] Teri Rdz. Findings of tortuous esophagus, benign stricture, and tight LES. S/P balloon dilation with no further dysphagia. Continue diabetic diet.
Diet: Diabetic
DVT Ppx:Lovenox
Code Status: DNR/DNI
Anticipated Discharge: Today
Subjective/Interval History
-
Date of Service: August 14, 2023
Patient doing well today. Afebrile. No new complaints
Objective Data
-
Labs:
Laboratory Results
08/14/23
05:08
WBC 13.3 H
Hgb 9.1 L
Hct 28.0 L
Plt Count 279
Sodium 133 L
Potassium 4.5
Chloride 99
Carbon Dioxide 30
BUN 40 H
Creatinine 0.8
Glucose 148 H
Calcium 8.9
Vital Signs:
Vital Signs
Temp Pulse Resp BP Pulse Ox
98.1 F 78 20 109/59 95
08/13/23 23:06 08/13/23 23:06 08/13/23 23:06 08/13/23 23:06 08/13/23 23:06
I&O
08/13/23 08/14/23 08/15/23
06:59 06:59 06:59
Intake Total 480 / 480
Output Total 800 / 800 450 / 450
Balance -800 / -800 30 / 30
[2023-08-14 08:01] VITALS: BP 135/70
[2023-08-14 08:37] LABS: Glucose - Point of Care 151 mg/dl (70-99)
[2023-08-14] MEDS: NOVOLOG FLEXPEN 16 UNITS SC (08:54)
[2023-08-14] MEDS: NOVOLOG FLEXPEN-MODERATE RESISTANCE 1 UNITS SC (08:55)
[2023-08-14] MEDS: GLUCOPHAGE 1000 MG PO (08:55)
[2023-08-14] MEDS: NEURONTIN 300 MG PO (08:55)
[2023-08-14] MEDS: LEXAPRO 5 MG PO (08:55)
[2023-08-14] MEDS: KCL 10 MEQ PO (08:56)
[2023-08-14] MEDS: AMARYL 2 MG PO (08:56)
[2023-08-14] MEDS: NORVASC 10 MG PO (08:56)
[2023-08-14] MEDS: TYLENOL 1000 MG PO (08:56)
[2023-08-14] MEDS: LANTUS 0.599999999999999978 UNITS SC (09:07)
[2023-08-14] MEDS: ROCEPHIN 1000 MG IV (11:23)
[2023-08-14] MEDS: STERILE WATER FOR INJECTION 10 ML IV (11:23)
[2023-08-14 12:11] LABS: Glucose - Point of Care 201 mg/dl (70-99)
[2023-08-14] MEDS: NOVOLOG FLEXPEN 20 UNITS SC (12:11)
[2023-08-14] MEDS: NOVOLOG FLEXPEN-MODERATE RESISTANCE 3 UNITS SC (12:12)
[2023-08-14 12:17] VITALS: BMI 19.4
--- NOTE | 2023-08-14 12:38 | W.DCSUMMARY ---
Discharge Summary
Discharge Data
Date of Admission: 08/13/23
Date of Discharge: 08/14/23
-
Pending Results: Yes
Additional Pending Results:
Lymph node biopsy-f/u OP with oncology.
Hospital Course
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
Patient admitted to the hospital and given IV fluids and attempted to put a Naidu catheter but subsequently there was no need for so held off on the Naidu catheter. There was some concerns for urinary tract infection so he was started on
antibiotics but cultures negative so far. Short course of antibiotics given his symptomatology and suspicion for cystitis. Oncology consulted. Patient underwent MRI of the thoracic and lumbar spine and there was no evidence of spinal cord
compression. There was some marrow signal slightly increased suggestive of treated non-Hodgkin lymphoma. Patient was started on steroids by oncology. Steroids subsequently were discontinued. He did have significant hyperglycemia due to steroids.
He required extra doses of insulin and after steroids were discontinued his hyperglycemia improved substantially. He also had some anemia but remained stable throughout this hospital stay and no signs of active bleeding. Oncology also arranged
for right axillary lymph node biopsy and results will be follow-up as outpatient. Otherwise, patient is hemodynamically stable and afebrile and feeling much better overall. PT OT recommended home health. abstract manager arranging home health upon
discharge. Patient is going to be discharged in stable condition today.
Discharge duration: 37 minutes
Discharge Plan
-
Patient Disposition: Home with Home Care
Discharge Diagnosis/Procedures: Possible urinary tract infection. Hyponatremia. Non-Hodgkin lymphoma. Generalized weakness. Urinary continence. Diabetes mellitus type 2 with hyperglycemia exacerbated by steroids.
Condition: Fair
Diet: Low Cholesterol
Activity: As tolerated
Driving Restrictions: As prior to admission
Blood Work: Please PCP to order CBC, BMP within 1 week
Referrals:
Terry Beltrán MD [Active] - in one to two weeks
Po Atkins MD [Family Provider] - in less than 1 week
Edmond Cam MD [Active] - in two to three weeks
Prescriptions:
New
cefuroxime axetil 500 mg Tablet
500 mg PO BID 3 Days Qty: 6 0RF
Continued
glimepiride 4 MG tablet
2 mg PO DAILY
metformin 1,000 MG tablet
1,000 mg PO BID
aspirin 81 mg Tablet,Delayed Release (Dr/Ec)
81 mg PO HS
amlodipine 10 mg tablet
10 mg PO DAILY
gabapentin 300 mg Capsule
300 mg PO BID
insulin glargine [Lantus Solostar U-100 Insulin] 100 unit/mL (3 mL) insulin pen
60 unit SC DAILY
acetaminophen [Tylenol Arthritis Pain] 650 mg Tablet Extended Release
1,300 mg PO TID
insulin aspart U-100 [Novolog FlexPen U-100 Insulin] 100 unit/mL (3 mL) Insulin Pen
16 - 20 unit SC AC
Rx Instructions:
Under 200= 16 units, Over 200= 20 units
potassium citrate 15 mEq tablet extended release
15 meq PO BID
escitalopram oxalate [Lexapro] 5 mg Tablet
5 mg PO DAILY
Discontinued
hydrochlorothiazide 25 mg tablet
25 mg PO DAILY
Discharge Orders:
Discharge Patient (As Directed); Ordered 08/14/23
Ordered By: Prashanth Calhoun
Discharge Date and Time
Discharge Date/Time: 08/14/23 13:48
Print Language: URUGUAYAN
[2023-08-14] MEDS: CEFTIN 500 MG PO (13:34)
[2023-08-14 13:40] VITALS: BP 128/70
--- NOTE | 2023-08-14 13:41 | PTCARENOTE ---
Reviewed discharge instructions with patient and family. Verbalize understanding of all teaching. Deny questions at this time. IV removed. Condom catheter removed. Patient assisted with dressing. Family is here to transport home.
--- NOTE | 2023-08-14 14:14 | CM ---
et with patient who is stable for dc home with [facility].discharge intructions were faxed to [facility].patient signed imm [email or web address] to transport patient home.
== END 2023-08-14 13:48 | disposition home health service (06) | DRG 824 ==
LOC: 4 EAST ACU 08:16
PROVIDERS: Radiology Vascular & Interventional Radiology; ADMITTING PHYSICIAN Internal Medicine; ATTENDING PHYSICIAN Hospitalist; CONSULT PHYSICIAN Internal Medicine Hematology & Oncology; EMERGENCY PHYSICIAN Student in an Organized Health Care Education/Training Program; FAMILY PHYSICIAN Family Medicine
PROC: 07B53ZX Excision of Right Axillary Lymphatic, Percutaneous Approach, Diagnostic (ICD-10-PCS; 2023-08-12)
DX: C82.00 Follicular lymphoma grade I, unspecified site (principal); C79.51 Secondary malignant neoplasm of bone; E87.1 Hypo-osmolality and hyponatremia; N39.0 Urinary tract infection, site not specified; Z68.1 Body mass index [BMI] 19.9 or less, adult; G47.33 Obstructive sleep apnea (adult) (pediatric); I10 Essential (primary) hypertension; R32 Unspecified urinary incontinence; T38.0X5A Adverse effect of glucocorticoids and synthetic analogues, initial encounter; E11.65 Type 2 diabetes mellitus with hyperglycemia; Z85.72 Personal history of non-Hodgkin lymphomas; Z79.4 Long term (current) use of insulin; Z87.440 Personal history of urinary (tract) infections; R63.4 Abnormal weight loss; E11.40 Type 2 diabetes mellitus with diabetic neuropathy, unspecified; F32.A Depression, unspecified; F41.9 Anxiety disorder, unspecified; R13.10 Dysphagia, unspecified; D63.0 Anemia in neoplastic disease; E78.00 Pure hypercholesterolemia, unspecified; I25.10 Atherosclerotic heart disease of native coronary artery without angina pectoris; I71.21 Aneurysm of the ascending aorta, without rupture; K44.9 Diaphragmatic hernia without obstruction or gangrene; R29.6 Repeated falls; Z66 Do not resuscitate; Z79.84 Long term (current) use of oral hypoglycemic drugs; Z79.899 Other long term (current) drug therapy
CPT/HCPCS: 88305; 38505; 72131; 72157; 72158; 76942; 80048; 81003; 81015; 82607; 82947; 82962; 83605; 83615; 84145; 84439; 84443; 85025; 85610; 85730; 87040; 88342; 92610; 93005; 94660; 97162; 97166; A9575